=== PATIENT | female | born 1950 | race Caucasian/White ===

== ENCOUNTER 2017-01-02 13:35 | Emergency (ER) | payer MEDICARE, OTHER ==
[~2017-01-02] VITALS: Ht 170.2 cm; Wt 82.2 kg
[~2017-01-02 13:35] MED LIST: ACHD5005 PO; ASP81TEC PO; BENA20TA72 PO; CYCL10TA9 PO; DULO60CA58 PO; DULO60CA6 PO; ERGO400T6; ERGO500028 PO; FLC100T1 PO; HYDR-3720 PO; HYDR1TAB8 PO; INSU100V6 SC; INSU100V6 SQ; K-ROCEP1PB IV; LEVO125T6 PO; LEVO150T6 PO; LEVO500T69 PO; LNZ600T PO; LVT.1T PO; METF-380 PO; MULT-418 PO; NITR-65 PO; OMEP20CA12 PO; ONDAN4ODT PO; VALS1TAB43 PO; VALS1TAB76 PO; VANCADD1 IV; novalog
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
--- NOTE | 2017-01-02 15:18 | Diagnostic Imaging Report ---
EXAM: PA and lateral views of the chest. INDICATION: Bronchitis. Shortness of breath. FINDINGS: The lungs appear clear. The heart size is normal. No effusion or pneumothorax. The mediastinum and essence appear unremarkable. Gastric band is seen in the upper abdomen. IMPRESSION: No acute process. Dictated by: Dictated on workstation # [id number]
[2017-01-02 15:31] LABS: BASOPHILS % (AUTO) 0 % (0-10); EOSINOPHILS # (AUTO) 0.1 10^3/uL (0.0-0.3); EOSINOPHILS % (AUTO) 2 % (0-10); LYMPHOCYTES # (AUTO) 1.6 X 10^3 (1.0-4.0); LYMPHOCYTES % (AUTO) 36 % (12-44); MEAN CORPUSCULAR HEMOGLOBIN 27 PG (25-34); MEAN CORPUSCULAR HGB CONC 34 G/DL (32-36); MEAN CORPUSCULAR VOLUME 78 FL (80-99); MEAN PLATELET VOLUME 12.2 FL (7.4-10.4); MONOCYTES # (AUTO) 0.3 X 10^3 (0.0-1.0); MONOCYTES % (AUTO) 6 % (0-12); NEUTROPHILS # (AUTO) 2.5 X 10^3 (1.8-7.8); NEUTROPHILS % (AUTO) 56 % (42-75); PLATELET COUNT 172 10^3/uL (130-400); RED BLOOD COUNT 4.62 10^6/uL (4.35-5.85); RED CELL DISTRIBUTION WIDTH 13.6 % (10.0-14.5); WHITE BLOOD COUNT 4.5 10^3/uL (4.3-11.0)
--- NOTE | 2017-01-02 15:32 | ED Cough/URI ---
General Chief Complaint: Cough/Cold/Flu Symptoms Stated Complaint: COUGH/CHEST CONGESTION HEAVINESS Nursing Triage Note: PT REPORTS COUGH/CONGESTION SINCE FRIDAY. PT REPORTS WAS SEEN BY DR KABA PA AND DX WITH BRONCHITIS AND GIVEN AN INHALER. PT REPORTS SHE WENT BACK TO WORK TODAY AND HAD AN EPISODE OF DYPNEA/BACK PAIN AND SOA AND DIAPHORESIS. PT REPORTS FEELING BETTER UPON ARRIVAL. History of Present Illness Time seen by provider: 14:50 Initial Comments Evaluation for dyspnea, SOA and back pain. She was diagnosed with bronchitis 2 days ago. Timing/Duration: this morning Severity/Quality: mild, productive cough Prior Episodes/Possible Cause: no prior episodes Modifying Factors: Improves With Lying Down, Improves With Rest Associated Symptoms: denies symptoms Allergies and Home Medications Allergies Coded Allergies: ceftriaxone (Verified Allergy, Intermediate, HIVES, 01/02/17) vancomycin (Verified Allergy, Intermediate, HIVES, 01/02/17) sulfamethoxazole (Verified Allergy, Mild, 01/02/17) trimethoprim (Verified Allergy, Mild, 01/02/17) Home Medications 5 UNITS (Reported) Aspirin 81 Mg Tabec 81 MG PO DAILY (Reported) Duloxetine HCl 60 Mg Capsule.dr 60 MG PO DAILY (Reported) Ergocalciferol 50,000 Unit Capsule 50,000 UNIT PO WEEKLY ON FRIDAY (Reported) Hydrocodone/Ibuprofen 1 Each Tablet #20 1 EACH PO Q4H Prescribed by: CLIF MINA on 02/16/16 0434 Insulin Glargine,Hum.rec.anlog 100 Unit/1 Ml Vial 45 UNITS SC HS (Reported) Levothyroxine Sodium 125 Mcg Tablet 125 MCG PO DAILY (Reported) Linezolid 600 Mg Tablet #20 1 TAB PO BID Prescribed by: JOSE ALEJANDRO KABA on 06/09/14 0839 Omeprazole 20 Mg Capsule. 20 MG PO DAILY (Reported) Valsartan/Hydrochlorothiazide 1 Each Tablet 1 TAB PO DAILY (Reported) Constitutional: no symptoms reported see HPI EENTM: no symptoms reported see HPI Respiratory: see HPI cough other (SOA) Cardiovascular: no symptoms reported see HPI Gastrointestinal: no symptoms reported see HPI Genitourinary: no symptoms reported see HPI Musculoskeletal: no symptoms reported see HPI Skin: no symptoms reported see HPI Psychiatric/Neurological: No Symptoms Reported See HPI Hematologic/Lymphatic: No Symptoms Reported See HPI Immunological/Allergic: no symptoms reported see HPI All Other Systems Reviewed Negative Unless Noted: Yes Past Dbrnqxg-Rhvodq-Xgwsoc Hx Patient Social History Alcohol Use: Denies Use Recreational Drug Use: No Smoking Status: Former Smoker Former Smoker/When Quit: Dec 08, 1985 2nd Hand Smoke Exposure: No Recent Foreign Travel: No Contact w/Someone Who Travel: No Recent Infectious Disease Expo: No Recent Hopitalizations: No Immunizations Up To Date Tetanus Booster (TDap): Unknown Date of Pneumonia Vaccine: Jun 28, 2013 Date of Influenza Vaccine: Jul 29, 2013 Seasonal Allergies Seasonal Allergies: No Surgeries HX Surgeries: Yes (L4-L5, L ANKLE, LAP BAND) Surgeries: Abdominal, Hysterectomy, Orthopedic, Tonsillectomy Respiratory Hx Respiratory Disorders: No Cardiovascular Hx Cardiac Disorders: Yes Cardiac Disorders: High Cholesterol, Hypertension Neurological Hx Neurological Disorders: No Reproductive System Hx Reproductive Disorders: No Sexually Transmitted Disease: No HIV/AIDS: No Female Reproductive Disorders: Denies Genitourinary Hx Genitourinary Disorders: No Gastrointestinal Hx Gastrointestinal Disorders: Yes (LAP BAND) Gastrointestinal Disorders: Gastroesophageal Reflux Musculoskeletal Hx Musculoskeletal Disorders: Yes (left leg Fx, left ankle fx, BACK SURGERY) Musculoskeletal Disorders: Fractures Endocrine Hx Endocrine Disorders: Yes Endocrine Disorders: Diabetes, Insulin dep, Hypothyroidsim HEENT HX ENT Disorders: Yes (Right eye retinopathy) Loss of Vision: Denies Hearing Impairment: Denies Cancer Hx Cancer: No Psychosocial Hx Psychiatric Problems: Yes (MILD) Behavioral Health Disorders: Depression Integumentary HX Skin/Integumentary Disorder: No Blood Transfusions Hx Blood Disorders: No Adverse Reaction to a Blood Tr: No Reviewed Nursing Assessment Reviewed/Agree w Nursing PMH: Yes Family Medical History Family Medial History: Congestive heart failure 03 MOTHER Family history: Arthritis 03 MOTHER Family history: Diabetes mellitus 03 MOTHER Family history: Hypertension 03 FATHER 03 MOTHER Stroke 03 FATHER ( 57YRS) 03 MOTHER (86YEARS) Physical Exam Vital Signs Vital Sign - Last 12Hours 01/02/17 13:49 Temp 96.4 Pulse 76 Resp 18 B/P 161/86 Pulse Ox 99 O2 Delivery Room Air Capillary Refill : Less Than 3 Seconds General Appearance: WD/WN no apparent distress Eyes: Bilateral Eye EOMI, Bilateral Eye Normal Inspection, Bilateral Eye PERRL HEENT: PERRL/EOMI normal ENT inspection TMs normal pharynx normal Neck: non-tender full range of motion supple normal inspection Respiratory: chest non-tender lungs clear normal breath sounds Cardiovascular: normal peripheral pulses regular rate, rhythm no murmur Gastrointestinal: normal bowel sounds non tender soft Extremities: normal range of motion non-tender normal inspection no calf tenderness normal capillary refill Neurologic/Psychiatric: no motor/sensory deficits alert normal mood/affect oriented x 3 Skin: normal color warm/dry Lymphatic: no adenopathy Focused Exam Lactic Acid Level Laboratory Tests Test 01/02/17 15:25 Alanine Aminotransferase (ALT/SGPT) 10U/L (0-55) Albumin 3.7G/DL (3.2-4.5) Alkaline Phosphatase 55U/L (40-136) Anion Gap 11MMOL/L (5-14) Aspartate Amino Transf (AST/SGOT) 19U/L (5-34) BUN/Creatinine Ratio 16 Blood Urea Nitrogen 14MG/DL (7-18) Calcium Level 8.9MG/DL (8.5-10.1) Carbon Dioxide Level 27MMOL/L (21-32) Chloride Level 102MMOL/L (98-107) Creatinine 0.87MG/DL (0.60-1.30) Estimat Glomerular Filtration Rate > 60 Glucose Level 218MG/DL (70-105) H Potassium Level 3.4MMOL/L (3.6-5.0) L Sodium Level 140MMOL/L (135-145) Total Bilirubin 0.4MG/DL (0.1-1.0) Total Protein 6.6G/DL (6.4-8.2) Troponin I < 0.30NG/ML (<0.30) Progress/Results/Core Measures Results/Orders Lab Results Laboratory Tests Test 01/02/17 15:25 Range/Units Alanine Aminotransferase (ALT/SGPT) 10 0-55 U/L Albumin 3.7 3.2-4.5 G/DL Alkaline Phosphatase 55 40-136 U/L Anion Gap 11 5-14 MMOL/L Aspartate Amino Transf (AST/SGOT) 19 5-34 U/L BUN/Creatinine Ratio 16 Basophils # (Auto) 0.0 0.0-0.1 10^3/uL Basophils (%) (Auto) 0 0-10 % Blood Urea Nitrogen 14 7-18 MG/DL Calcium Level 8.9 8.5-10.1 MG/DL Carbon Dioxide Level 27 21-32 MMOL/L Chloride Level 102 98-107 MMOL/L Creatinine 0.87 0.60-1.30 MG/DL Eosinophils # (Auto) 0.1 0.0-0.3 10^3/uL Eosinophils (%) (Auto) 2 0-10 % Estimat Glomerular Filtration Rate > 60 Glucose Level 218 H 70-105 MG/DL Hematocrit 36 35-52 % Hemoglobin 12.4 11.5-16.0 G/DL Lymphocytes # (Auto) 1.6 1.0-4.0 X 10^3 Lymphocytes (%) (Auto) 36 12-44 % Mean Corpuscular Hemoglobin 27 25-34 PG Mean Corpuscular Hemoglobin Concent 34 32-36 G/DL Mean Corpuscular Volume 78 L 80-99 FL Mean Platelet Volume 12.2 H 7.4-10.4 FL Monocytes # (Auto) 0.3 0.0-1.0 X 10^3 Monocytes (%) (Auto) 6 0-12 % Neutrophils # (Auto) 2.5 1.8-7.8 X 10^3 Neutrophils (%) (Auto) 56 42-75 % Platelet Count 172 130-400 10^3/uL Potassium Level 3.4 L 3.6-5.0 MMOL/L Red Blood Count 4.62 4.35-5.85 10^6/uL Red Cell Distribution Width 13.6 10.0-14.5 % Sodium Level 140 135-145 MMOL/L Total Bilirubin 0.4 0.1-1.0 MG/DL Total Protein 6.6 6.4-8.2 G/DL Troponin I < 0.30 <0.30 NG/ML White Blood Count 4.5 4.3-11.0 10^3/uL My Orders Orders-QUANG MENDOZA Cbc With Automated Diff (01/02/17 15:02) Comprehensive Metabolic Panel (01/02/17 15:02) Chest Pa/Lat (2 View) (01/02/17 15:02) Troponin I (01/02/17 15:07) Ekg Tracing (01/02/17 15:07) Monitor-Rhythm Ecg Trace Only (01/02/17 15:07) Vital Signs/I&O Vital Sign - Last 12Hours 01/02/17 01/02/17 01/02/17 13:49 13:49 16:31 Temp 96.4 96.4 Pulse 76 63 Resp 18 14 B/P 161/86 Pulse Ox 99 96 O2 Delivery Room Air Blood Pressure Mean: 111 Progress Note : Time: 14:50 Progress Note Initial evaluation completed, due to the fact the patient is having chest tightness that atypical for chest pain I would still like to proceed with a chest workup. The patient and her agreed with this. 1535 CBC within normal limits; troponin less than 0.3, glucose 218, sodium 140, potassium 3.4, creatinine 0.87, and EKG within normal limits discussed with patient. In light of this I feel much more comfortable that it is respiratory in nature and not cardiac. ECG Initial ECG Impression Date: Jan 02, 2017 Initial ECG Impression Time: 15:18 Initial ECG Rate: 62 Initial ECG Rhythm: Normal Sinus Initial ECG Intervals: Normal Initial ECG Intervals IN 148, QRS D 86, QT 428, QTc 435 [place] P 58, QRS 21, T3 Initial ECG Impression: Normal Comment Discussed with Dr. Abraham agreed with interpretation Diagnostic Imaging Diagonstic Imaging: Xray Plain Films/CT/US/NM/MRI: chest Comments NAME: [facility] REC#: [id number] PT STATUS: REG ER : 1950 PHYSICIAN: QUANG MENDOZA ADMIT DATE: 01/02/17/ER Signed Date of Exam: 01/02/17 CHEST PA/LAT (2 VIEW) EXAM: PA and lateral views of the chest. INDICATION: Bronchitis. Shortness of breath. FINDINGS: The lungs appear clear. The heart size is normal. No effusion or pneumothorax. The mediastinum and essence appear unremarkable. Gastric band is seen in the upper abdomen. IMPRESSION: No acute process. Dictated by: Dictated on workstation # [id number] Dict: 01/02/17 1514 Trans: 01/02/17 1523 [facility] [id number] Interpreted by: NAY SPARKS MD Electronically signed by:NAY SPARKS MD 01/02/17 1526 Departure Impression Impression: Primary Impression: Bronchitis Disposition: 01 HOME, SELF-CARE Condition: Improved Departure-Patient Inst. Referrals: JOSE ALEJANDRO KABA DO (PCP/Family) Primary Care Physician Patient Instructions: Acute Bronchitis, Adult (DC), Cough, Adult (DC) Add. Discharge Instructions: All discharge instructions reviewed with patient and/or family. Voiced understanding. Increase oral intake, check blood sugars twice a day, continue treatment as ordered by Dr. Kaba's office. Return to emergency room if difficulty breathing, chest pain, or change in symptoms. Copy Copies To 1: JOSE ALEJANDRO KABA AMY ARNP Jan 02, 2017 15:32
[2017-01-02 15:48] LABS: ALANINE AMINOTRANSFERASE 10 U/L (0-55); ALBUMIN 3.7 G/DL (3.2-4.5); ANION GAP 11 MMOL/L (5-14); ASPARTATE AMINO TRANSFERASE 19 U/L (5-34); BILIRUBIN,TOTAL 0.4 MG/DL (0.1-1.0); BLOOD UREA NITROGEN 14 MG/DL (7-18); BUN/CREATININE RATIO 16; CALCIUM 8.9 MG/DL (8.5-10.1); CARBON DIOXIDE 27 MMOL/L (21-32); CHLORIDE 102 MMOL/L (98-107); CREATININE SERUM 0.87 MG/DL (0.60-1.30); GFR ESTIMATED > 60; GLUCOSE 218 MG/DL (70-105); POTASSIUM 3.4 MMOL/L (3.6-5.0); SODIUM 140 MMOL/L (135-145); TOTAL PROTEIN 6.6 G/DL (6.4-8.2)
[2017-01-02 15:54] LABS: TROPONIN I < 0.30 NG/ML (<0.30)
[2017-01-02 16:31] VITALS: BP 134/75
== END 2017-01-02 16:31 | disposition home or self-care (01) ==
LOC: EDUNIT# 13:35 → ER 13:38
DX: J40 Bronchitis, not specified as acute or chronic (principal); R07.89 Other chest pain; R61 Generalized hyperhidrosis; E11.9 Type 2 diabetes mellitus without complications; Z79.82 Long term (current) use of aspirin; Z79.4 Long term (current) use of insulin; Z79.899 Other long term (current) drug therapy
CPT/HCPCS: 36415; 71020; 80053; 84484; 85025; 93005; 93041

== ENCOUNTER 2017-02-08 15:05 | Inpatient (IN) | payer MEDICARE, OTHER ==
[~2017-02-08] VITALS: Ht 170.2 cm; Wt 86.3 kg
[2017-02-08] VITALS (8 sets, daily range): BP systolic 90–126; BP diastolic 51–78
[2017-02-08] MEDS ORDERED: HEParin 1000 UNIT/ML (10ML VIAL) FOR BOLUS ONE ×2 (15:10→15:17)
[2017-02-08] MEDS ORDERED: CLOPIDOGREL 300 MG (PLAVIX) TABLET PO ONE ×2 (15:11→15:15)
[2017-02-08] MEDS ORDERED: morphine INJ 10 MG/ML 1ML (SYR OR VIAL) ONE (15:12)
[2017-02-08] MEDS ORDERED: ONDANSETRON 4 MG/2 ML (SDV) Z0FRAN ONE (15:15)
[2017-02-08] MEDS ORDERED: LIDOCAINE 1% INJ 20 ML (XYLOCAINE) VIAL ONE (15:16)
[2017-02-08] MEDS ORDERED: NITROGLYCERIN DRIP 25 MG/D5W 250 ML IV ONE (15:17)
[2017-02-08] MEDS ORDERED: fentaNYL INJECTION 100 MCG/2 ML AMP ONE (15:17)
[2017-02-08] MEDS ORDERED: HEParin (CATH LAB) 2,000 ML IV ONE (15:17)
[2017-02-08] MEDS ORDERED: MIDAZOLAM 5 MG/5 ML (VERSED) VIAL ONE (15:17)
[2017-02-08] MEDS ORDERED: NS IV 1000 ML 1,000 ML ONE (15:17)
[2017-02-08] MEDS ORDERED: EPTIFIBATIDE BOLUS 20 ML IV ONE (15:23)
[2017-02-08] MEDS ORDERED: HEParin DRIP 25000 UNIT/500ML 500 ML IV ONE (15:23)
--- NOTE | 2017-02-08 15:23 | ED Chest Pain ---
General Chief Complaint: Chest Pain Stated Complaint: CHEST PAIN, N/V Source: patient, EMS Exam Limitations: no limitations History of Present Illness Time seen by provider: 15:05 Initial Comments Here with report of chest pain that started at about 215 central with radiation to the back. This is associated with nausea, vomiting, weakness, shortness of breath and diaphoresis. No previous heart catheter noted. She called her friend right away who is then called EMS and EMS brought her in. They were reporting question of elevation in V2 through V4. EMS gave Zofran 4 mg IM, nitroglycerin 1 inch paste to the chest wall and aspirin 324 mg by mouth. Multiple attempts at IV were unsuccessful by EMS. Timing/Duration: 1 hour, constant Severity/Quality: moderate, severe, pressure Location: central Radiation: back Activities at Onset: none Prior CP/Workup: non-cardiac ASA po DIRECTOR HOME HEALTH: Yes NTG SL DIRECTOR HOME HEALTH: Yes Associated Symptoms: No back pain, diaphoresis, nausea/vomiting Allergies and Home Medications Allergies Coded Allergies: ceftriaxone (Verified Allergy, Intermediate, HIVES, 01/02/17) vancomycin (Verified Allergy, Intermediate, HIVES, 01/02/17) sulfamethoxazole (Verified Allergy, Mild, 01/02/17) trimethoprim (Verified Allergy, Mild, 01/02/17) Home Medications Aspirin 81 Mg Tabec, 81 MG PO DAILY, (Reported) Duloxetine HCl 60 Mg Capsule.dr, 60 MG PO DAILY, (Reported) Ergocalciferol 50,000 Unit Capsule, 50,000 UNIT PO WEEKLY ON FRIDAY, (Reported) Hydrocodone/Ibuprofen 1 Each Tablet, 1 EACH PO Q4H, #20 Prescribed by: CLIF MINA on 02/16/16 0434 Insulin Glargine,Hum.rec.anlog 100 Unit/1 Ml Vial, 45 UNITS SC HS, (Reported) Levothyroxine Sodium 125 Mcg Tablet, 125 MCG PO DAILY, (Reported) Linezolid 600 Mg Tablet, 1 TAB PO BID, #20 Prescribed by: JOSE ALEJANDRO MARIE on 06/09/14 0839 Omeprazole 20 Mg Capsule.dr, 20 MG PO DAILY, (Reported) Valsartan/Hydrochlorothiazide 1 Each Tablet, 1 TAB PO DAILY, (Reported) [novalog] , 5 UNITS, (Reported) Review of Systems Constitutional: see HPI, No chills, diaphoresis, No fever EENTM: No Symptoms Reported Respiratory: See HPI, Shortness of Air Cardiovascular: See HPI, Denies Edema, Lightheadedness Gastrointestinal: See HPI, Denies Diarrhea, Nausea, Vomiting Genitourinary: No Symptoms Reported Musculoskeletal: no symptoms reported Skin: change in color Psychiatric/Neurological: No Symptoms Reported Endocrine: No Symptoms Reported All Other Systems Reviewed Negative Unless Noted: Yes Past Jzeejay-Folmlv-Tmpzgz Hx Patient Social History Alcohol Use: Denies Use Recreational Drug Use: No Smoking Status: Never a Smoker Former Smoker/When Quit: Dec 08, 1985 2nd Hand Smoke Exposure: No Recent Hopitalizations: No Immunizations Up To Date Tetanus Booster (TDap): Unknown Date of Pneumonia Vaccine: Jun 28, 2013 Date of Influenza Vaccine: Jul 29, 2013 Seasonal Allergies Seasonal Allergies: No Surgeries HX Surgeries: Yes (L4-L5, L ANKLE, LAP BAND) Surgeries: Abdominal, Hysterectomy, Orthopedic, Tonsillectomy Respiratory Hx Respiratory Disorders: No Cardiovascular Hx Cardiac Disorders: Yes Cardiac Disorders: High Cholesterol, Hypertension Neurological Hx Neurological Disorders: No Reproductive System Hx Reproductive Disorders: No Sexually Transmitted Disease: No HIV/AIDS: No Female Reproductive Disorders: Denies Genitourinary Hx Genitourinary Disorders: No Gastrointestinal Hx Gastrointestinal Disorders: Yes (LAP BAND) Gastrointestinal Disorders: Gastroesophageal Reflux Musculoskeletal Hx Musculoskeletal Disorders: Yes (left leg Fx, left ankle fx, BACK SURGERY) Musculoskeletal Disorders: Fractures Endocrine Hx Endocrine Disorders: Yes Endocrine Disorders: Diabetes, Insulin dep, Hypothyroidsim HEENT HX ENT Disorders: Yes (Right eye retinopathy) Loss of Vision: Denies Hearing Impairment: Denies Cancer Hx Cancer: No Psychosocial Hx Psychiatric Problems: Yes (MILD) Behavioral Health Disorders: Depression Integumentary HX Skin/Integumentary Disorder: No Blood Transfusions Hx Blood Disorders: No Adverse Reaction to a Blood Tr: No Reviewed Nursing Assessment Reviewed/Agree w Nursing PMH: Yes Family Medical History Family Medial History: Congestive heart failure 03 MOTHER Family history: Arthritis 03 MOTHER Family history: Diabetes mellitus 03 MOTHER Family history: Hypertension 03 FATHER 03 MOTHER Stroke 03 FATHER ( 57YRS) 03 MOTHER (86YEARS) Physical Exam Vital Signs Capillary Refill : General Appearance: Moderate Distress HEENT: PERRL/EOMI, Pharynx Normal Neck: Non Tender, Supple Respiratory: Lungs Clear, Normal Breath Sounds Cardiovascular: Regular Rate, Rhythm, No Murmur Gastrointestinal: Non Tender, Soft Extremity: Normal Range of Motion, Non Tender, No Calf Tenderness, No Pedal Edema Neurologic/Psychiatric: Alert, Oriented x3 Skin: Cool, Diaphoresis, Pallor Progress/Results/Core Measures Results/Orders My Orders Orders - DAKOTAH BARRETO MD Heparin (Bolus Per Protocol) (Heparin (B (02/08/17 15:10) Clopidogrel Tablet (Plavix Tablet) (02/08/17 15:11) Morphine Injection (Morphine Injection (02/08/17 15:12) Ondansetron Injection (Zofran Injectio (02/08/17 15:15) Lidocaine 1% Injection (Xylocaine 1% Inj (02/08/17 15:16) Midazolam Injection (Versed Injection) (02/08/17 15:17) Fentanyl Injection (Sublimaze Injection (02/08/17 15:17) Heparin (Bolus Per Protocol) (Heparin (B (02/08/17 15:17) Ns Iv 1000 Ml (Sodium Chloride 0.9%) (02/08/17 15:17) Nitroglycerin Drip 25 Mg/D5w (Nitroglyce (02/08/17 15:17) Heparin ([facility]) (Heparin ([facility])) (02/08/17 15:17) Cbc With Automated Diff (02/08/17:23) Magnesium (02/08/17 15:23) Chest 1 View, Ap/Pa Only (02/08/17 15:23) Ekg Tracing (02/08/17 15:23) Cardiac Profile 1 (02/08/17 15:23) Comprehensive Metabolic Panel (02/08/17:23) Myoglobin Serum (02/08/17 15:23) Protime With Inr (02/08/17:23) Partial Thromboplastin Time (02/08/17 15:23) O2 (02/08/17 15:23) Monitor-Rhythm Ecg Trace Only (02/08/17:23) Lipid Panel (02/09/17 06:00) Saline Lock/Iv-Start (02/08/17 15:23) Heparin Injection (Heparin Injection) (02/08/17 15:30) Heparin Drip Acs (02/08/17 15:23) Progress Note : Progress Note Seen and evaluated on arrival by EMS. Rapid evaluation including EKG which does note acute CO in the anterior region. Catheter team notified paged at 1508 and I did discuss the case with him at 1510. There is a patient on the catheter table currently but will be off pretty quick and this patient will go to the [facility]. Plavix 6 or milligrams by mouth, heparin 5000 unit bolus and drip of 1000 units an hour initiated. IV was established. Labs and chest x- ray ordered. Zofran 4 mg IV given for persistent nausea. Patient has nitro paste on. She has continued chest pain. Morphine IV given for pain. 1525: Catheter team updated and will be here shortly. Case discussed with Dr. Arthur. 1535: Patient to [facility]. Chest pain is improving but not gone with morphine. ECG Initial ECG Impression Date: Feb 08, 2017 Initial ECG Impression Time: 15:08 Initial ECG Rate: 65 Initial ECG Rhythm: Normal Sinus Initial ECG Impression: Acute CO Comment Significant elevation in leads V1 through V3 [address] depression in leads 2, 3 and aVF indicating extensive anterior infarct acute ST elevation CO. Diagnostic Imaging Diagonstic Imaging: Xray Plain Films/CT/US/NM/MRI: chest Comments VIA [facility]. [place], [place] NAME: [facility] REC#: [id number] PT STATUS: REG ER : 1950 PHYSICIAN: DAKOTAH BARRETO MD ADMIT DATE: 02/08/17/ER Draft Date of Exam:02/08/17 CHEST 1 VIEW, AP/PA ONLY INDICATION: Chest pain. Portable chest 3:26 PM FINDINGS: Heart size and pulmonary vascularity are normal. Lungs are clear. There are no effusions or pneumothoraces. IMPRESSION: Negative chest. Dictated on workstation # [id number] Dict: 02/08/17 1530 Trans: 02/08/17 1533 [id number] Interpreted by: DAKOTAH PETER Electronically signed by: Departure Communication Time/Spoke to Admitting Phy: 15:10 Impression Impression: Primary Impression: Acute anterior wall CO Disposition: ADMITTED INPATIENT Condition: Critical Decision to Admit Reason: Admit from ER (General) Decision to Admit/Date: Feb 08, 2017 Time/Decision to Admit Time: 15:08 Departure-Patient Inst. Referrals: JOSE ALEJANDRO MARIE DO (PCP/Family) Primary Care Physician DAKOTAH BARRETO MD Feb 08, 2017 15:23
--- NOTE | 2017-02-08 15:33 | Diagnostic Imaging Report ---
INDICATION: Chest pain. Portable chest 3:26 PM FINDINGS: Heart size and pulmonary vascularity are normal. Lungs are clear. There are no effusions or pneumothoraces. IMPRESSION: Negative chest. Dictated by: Dictated on workstation # [id number]
[2017-02-08 15:41] LABS: BASOPHILS # (AUTO) 0.1 10^3/uL (0.0-0.1); BASOPHILS % (AUTO) 1 % (0-10); EOSINOPHILS # (AUTO) 0.2 10^3/uL (0.0-0.3); EOSINOPHILS % (AUTO) 2 % (0-10); LYMPHOCYTES # (AUTO) 3.7 X 10^3 (1.0-4.0); LYMPHOCYTES % (AUTO) 35 % (12-44); MEAN CORPUSCULAR HEMOGLOBIN 26 PG (25-34); MEAN CORPUSCULAR HGB CONC 33 G/DL (32-36); MEAN CORPUSCULAR VOLUME 78 FL (80-99); MEAN PLATELET VOLUME 11.4 FL (7.4-10.4); MONOCYTES # (AUTO) 0.5 X 10^3 (0.0-1.0); MONOCYTES % (AUTO) 5 % (0-12); NEUTROPHILS % (AUTO) 58 % (42-75); PLATELET COUNT 318 10^3/uL (130-400); RED BLOOD COUNT 5.41 10^6/uL (4.35-5.85); WHITE BLOOD COUNT 10.4 10^3/uL (4.3-11.0)
--- NOTE | 2017-02-08 15:46 | Cardiac Procedure Note-CS/ASA ---
Pre-Procedure Note Pre-Op Procedure Note H&P Reviewed The H&P was reviewed, patient examined and no changes noted. Date H&P Reviewed: Feb 08, 2017 Time H&P Reviewed: 15:46 Conscious Sedation Pre-Proced Time Reviewed: 15:46 ASA Class: 4 Airway Mallampati Classification: ([place] appropriate class) I. II. III, IV Lungs Heart ASA score ASA 1: a normal healthy patient ASA 2: a patient with a mild systemic disease (mid diabetes, controlled hypertension, obesity ASA 3: a patient with a severe systemic disease that limits activity (angina , COPD, prior Myocardial infarction) ASA 4: a patient with an incapacitating disease that is a constant threat to life (CHF, renal failure) ASA 5: a moribund patient not expected to survive 24 hrs. (ruptured aneurysm) ASA 6: a declared brain patient whose organs are being harvested. For emergent operations, add the letter E after the classification Grade 3 Sedation Plan: Analgesia, Amnesia, Plan communicated to team members, Discussed options with patient/fam, Discussed risks with patient/fam Note The patient is an appropriate candidate to undergo the planned procedure, sedation, and anesthesia. The patient immediately re-assessed prior to indication. CROW ACKERMAN MD FACP FAC CCDS Feb 08, 2017 15:46
[2017-02-08 15:51] LABS: INR 1.1 (0.8-1.4)
[2017-02-08] MEDS ORDERED: EPTIFIBATIDE DRIP 100 ML IV ONE (15:56)
[2017-02-08 16:02] LABS: ALANINE AMINOTRANSFERASE 9 U/L (0-55); ALBUMIN 4.7 G/DL (3.2-4.5); ANION GAP 18 MMOL/L (5-14); ASPARTATE AMINO TRANSFERASE 19 U/L (5-34); BLOOD UREA NITROGEN 10 MG/DL (7-18); BUN/CREATININE RATIO 10; CALCIUM 10.3 MG/DL (8.5-10.1); CARBON DIOXIDE 21 MMOL/L (21-32); CHLORIDE 104 MMOL/L (98-107); CREATININE SERUM 1.01 MG/DL (0.60-1.30); GFR ESTIMATED 55; GLUCOSE 137 MG/DL (70-105); MAGNESIUM 2.2 MG/DL (1.8-2.4); POTASSIUM 3.6 MMOL/L (3.6-5.0); SODIUM 143 MMOL/L (135-145); TOTAL PROTEIN 8.7 G/DL (6.4-8.2)
[2017-02-08 16:08] LABS: MYOGLOBIN SERUM 174.9 NG/ML (10.0-92.0)
[2017-02-08] MEDS ORDERED: PATIENT MAY USE OWN MEDS, ALL PO SCH (16:30)
[2017-02-08] MEDS ORDERED: ACETAMINOPHEN 325 MG TABLET/CAPLET (TYLENOL) PO PRN (16:30)
[2017-02-08] MEDS ORDERED: NS IV 1000 ML 1,000 ML IV SCH (16:45)
[2017-02-08 16:46] LABS: PARTIAL THROMBOPLASTIN TIME > 200 SEC (24-35)
--- NOTE | 2017-02-08 16:58 | Cardiology History & Physical ---
HPI-Cardiology Cardiology H&P Date of Admission 02/08/17 Primary Care Physician Flor Kaba DO Attending Physician Cori Arthur MD FACP [facility] CCDS Consulting Physician [facility] CC: Chest pain HPI: 66 yo woman who presents with 2 hours of mid sternal cp radiating to shoulders and back and associated with diaphoresis and some shortness of breath , severe in intensity, unresponsive to s/l NTG, not associated with palp or syncope, never experienced before. Denies ankle swelling or fever or chills Review of Systems-Cardiology Review of Systems Constitutional: malaise Eyes: No vision change Ears/Nose/Throat: No ear discharge, No nasal drainage, No recent hearing loss Respiratory: As described under HPI Cardiovascular: As described under HPI Gastrointestinal: No constipation, No diarrhea, nausea, No vomiting Genitourinary: No dysuria, No hematuria, No urine frequency changes Musculoskeletal: back pain Skin: No rash, No ulcerations Psychiatric/Neurological: No focal weakness, No seizure, No syncope Hematologic: bleeding abnormalities All Other Systems Reviewed Negative Unless Noted: Yes [id number] Hx Patient Social History Alcohol Use: Denies Use Recreational Drug Use: No Smoking Status: Never a Smoker Former smoker/When Quit: Dec 08, 1985 2nd Hand Smoke Exposure: No Recent Foreign Travel: No Recent Infectious Disease Expo: No Hospitalization with Isolation: Denies Immunizations Up To Date Tetanus Booster (TDap): Unknown Date of Pneumonia Vaccine: Jun 28, 2013 Date of Influenza Vaccine: Jul 29, 2013 Past Medical History PMH As described under Assessment. Family Medical History Family History: Congestive heart failure 03 MOTHER Family history: Arthritis 03 MOTHER Family history: Diabetes mellitus 03 MOTHER Family history: Hypertension 03 FATHER 03 MOTHER Stroke 03 FATHER ( 57YRS) 03 MOTHER (86YEARS) Allergies and Home Medications Allergies Coded Allergies: ceftriaxone (Verified Allergy, Intermediate, HIVES, 01/02/17) vancomycin (Verified Allergy, Intermediate, HIVES, 01/02/17) sulfamethoxazole (Verified Allergy, Mild, 01/02/17) trimethoprim (Verified Allergy, Mild, 01/02/17) Home Medications Aspirin 81 Mg Tabec, 81 MG PO DAILY, (Reported) Duloxetine HCl 60 Mg Capsule.dr, 60 MG PO DAILY, (Reported) Ergocalciferol 50,000 Unit Capsule, 50,000 UNIT PO WEEKLY ON FRIDAY, (Reported) Insulin Glargine,Hum.rec.anlog 100 Unit/1 Ml Vial, 45 UNITS SC HS, (Reported) Levothyroxine Sodium 125 Mcg Tablet, 125 MCG PO DAILY, (Reported) Omeprazole 20 Mg Capsule.dr, 20 MG PO DAILY, (Reported) Valsartan/Hydrochlorothiazide 1 Each Tablet, 1 TAB PO DAILY, (Reported) [novalog] , 5 UNITS, (Reported) Physical Exam-Cardiology Physical Exam Vital Signs/I&O Vital Sign - Last 12Hours 02/08/17 02/08/17 02/08/17 02/08/17 15:08 15:08 15:10 15:16 Temp 97.4 97.4 Pulse 70 Resp 20 B/P (MAP) 162/93 Pulse Ox 97 97 O2 Delivery Room Air Room Air Room Air 02/08/17 15:35 Temp 97.4 Pulse 74 Resp 22 Pulse Ox 98 Capillary Refill : Less Than 3 Seconds Constitutional: AAO x 3, well-developed, well-nourished HEENT: PERRL, EOMI, No xanthelasmas are seen Neck: carotid pulses are 2 + bilaterally, with good upstrokes Respiratory: No accessory muscle use, lungs clear to auscultation Cardiovascular: regular rate-rhythm, S1 and S2, systolic murmur (soft ISABEL at cardiac base) Gastrointestinal: No tender, soft, No guarding, No rebound, audible bowel sounds Extremities: No pedal edema, No clubbing, No cyanosis Neurologic/Psychiatric: oriented x 3, grossly intact, power is 5/5 both on sides Skin: No rash on exposed areas, No ulcerations on exposed areas Data Review Labs Laboratory Tests 02/08/17 15:31: Glucometer 131H 02/08/17 15:33: White Blood Count 10.4, Red Blood Count 5.41, Hemoglobin 14.1, Hematocrit 42, Mean Corpuscular Volume 78L, Mean Corpuscular Hemoglobin 26, Mean Corpuscular Hemoglobin Concent 33, Red Cell Distribution Width 14.0, Platelet Count 318, Mean Platelet Volume 11.4H, Neutrophils (%) (Auto) 58, Lymphocytes (%) (Auto) 35 , Monocytes (%) (Auto) 5, Eosinophils (%) (Auto) 2, Basophils (%) (Auto) 1, Neutrophils # (Auto) 6.0, Lymphocytes # (Auto) 3.7, Monocytes # (Auto) 0.5, Eosinophils # (Auto) 0.2, Basophils # (Auto) 0.1, Prothrombin Time 14.0, INR Comment 1.1, Activated Partial Thromboplast Time > 200*H, Sodium Level 143, Potassium Level 3.6, Chloride Level 104, Carbon Dioxide Level 21, Anion Gap 18H , Blood Urea Nitrogen 10, Creatinine 1.01, Estimat Glomerular Filtration Rate 55 , BUN/Creatinine Ratio 10, Glucose Level 137H, Calcium Level 10.3H, Magnesium Level 2.2, Total Bilirubin 1.0, Aspartate Amino Transf (AST/SGOT) 19, Alanine Aminotransferase (ALT/SGPT) 9, Alkaline Phosphatase 86, Myoglobin 174.9H, Troponin I < 0.30, Total Protein 8.7H, Albumin 4.7H Laboratory Tests 02/08/17 15:33 A/P-Cardiology Assessment/Admission Diagnosis Ac STEMI, anterolateral Hypertension DM II Hyperlipidemia Obesity with BMI approx 28 Discussion and Recomendations Emergency card cath recommended. Pros and cons discussed. She provided informed consent for cath and possible ad hoc PCI Clinical Quality Measures AMI/AHF: ASA po Prior to arrival: Yes CORI ARTHUR MD FACP FAC [facility]S Feb 08, 2017 16:58
[2017-02-08] MEDS ORDERED: meTOproloL SUCCINATE 50 MG (TOPROL XL) TAB PO SCH (17:00)
[2017-02-08] MEDS: NS IV 1000 ML 1,000 ML IV SCH (17:52)
[2017-02-08] MEDS: ATORVASTATIN 40 MG (LIPITOR) TABLET PO SCH (21:00)
[2017-02-08] MEDS ORDERED: inSUlin (REGULAR) HUMAN 1 UNIT/0.01 ML (CHARGE PER UNIT) SC SCH (21:00)
[2017-02-08] MEDS: inSUlin (REGULAR) HUMAN 1 UNIT/0.01 ML (CHARGE PER UNIT) SC SCH (22:00)
[2017-02-09] VITALS (22 sets, daily range): BP systolic 100–148; BP diastolic 55–87
[2017-02-09] MEDS: inSUlin (REGULAR) HUMAN 1 UNIT/0.01 ML (CHARGE PER UNIT) SC SCH ×4 (03:12→21:14)
[2017-02-09] MEDS ORDERED: inSUlin DETERMIR 1 UNIT/0.01 ML (LEVEMIR) CHARGE PER UNIT SQ ONE (03:21)
[2017-02-09 04:21] LABS: MEAN PLATELET VOLUME 11.8 FL (7.4-10.4); RED BLOOD COUNT 4.61 10^6/uL (4.35-5.85); RED CELL DISTRIBUTION WIDTH 14.4 % (10.0-14.5); WHITE BLOOD COUNT 9.7 10^3/uL (4.3-11.0)
[2017-02-09 04:48] LABS: ALBUMIN 3.8 G/DL (3.2-4.5); BILIRUBIN,TOTAL 0.8 MG/DL (0.1-1.0); CALCIUM 9.4 MG/DL (8.5-10.1); CREATININE SERUM 1.01 MG/DL (0.60-1.30); MAGNESIUM 2.1 MG/DL (1.8-2.4); POTASSIUM 4.3 MMOL/L (3.6-5.0); TOTAL PROTEIN 6.8 G/DL (6.4-8.2)
[2017-02-09 05:10] LABS: THYROID STIMULATING HORMONE 0.74 UIU/ML (0.35-4.94)
[2017-02-09] MEDS: inSUlin DETERMIR 1 UNIT/0.01 ML (LEVEMIR) CHARGE PER UNIT SQ SCH ×2 (06:30→22:12)
[2017-02-09] MEDS: NS IV 1000 ML 1,000 ML IV SCH (08:22)
--- NOTE | 2017-02-09 10:03 | CARDIAC CATHETERIZATION ---
DATE OF SERVICE: 02/08/2017 PROCEDURE: Cardiac catheterization and coronary intervention. PRIMARY CARE PHYSICIAN: Dr. Kaba. The patient is a 66-year-old lady who presented with 2 hours of chest pain and there was ST elevation on the myocardial infarction consistent with acute anterolateral myocardial infarction associated with ST elevation. Emergency cardiac catheterization was recommended. Informed consent was obtained. PROCEDURE: She was brought to the cardiac catheterization laboratory. Right groin was prepped and draped in the usual sterile fashion. Lidocaine 1% local anesthesia. Modified Seldinger technique was used to advance a 6-Cambodian sheath in the right femoral artery. A 6-Cambodian JL4 catheter was used for left coronary angiography. PERCUTANEOUS INTERVENTION TO THE LEFT ANTERIOR DESCENDING ARTERY: Following completion of the diagnostic procedure for the left coronary system, we proceeded with percutaneous intervention to the proximal left anterior descending artery which was completely occluded with no antegrade flow. We used a 6-Cambodian JL4 guide catheter to engage the left coronary artery. We gave a double bolus of Integrilin and Integrilin infusion was continued throughout the procedure. She had received 5000 units of intravenous heparin in the emergency room. We gave an additional 3000 units of intravenous heparin at the time of the interventional procedure. We used a Choice floppy wire to cross the lesion with moderate difficulty and the tip of the wire was placed in the distal left anterior descending artery. We carried out balloon angioplasty with Emerge 2.0 x 12 mm balloon. This restored antegrade flow to the left anterior descending artery. The balloon was removed and we then proceeded with stenting of the proximal left anterior descending artery lesion with Alpine Xience 2.5 x 15 mm stent. This was carefully positioned to cover the entire lesion and the stent was deployed at 18 atmospheres achieving a final stent lumen size of approximately 2.75 mm. She tolerated the procedure well. Following the stenting procedure, there is 0% residual stenosis left anterior descending artery and flow throughout the vessel is normal. Angioplasty equipment was removed. We then carried out diagnostic angiography of the right coronary artery using a 6-Cambodian JR4 catheter. We carried out left heart catheterization using a 6-Cambodian pigtail catheter. Left ventriculography was performed. Pigtail was pulled back and removed. Angiography of the right femoral artery was carried out through the sheath. Mynx was used to achieve hemostasis. She tolerated the procedure well. HEMODYNAMICS: Left ventricular end diastolic pressure following coronary angiography was 21 mmHg. There was no significant pressure gradient on pullback across the aortic valve. The ascending aortic pressure is 102/61 with a mean of 81 mmHg. LEFT VENTRICULAR ANGIOGRAPHY: Was carried out in the right anterior oblique projection. Global left ventricular systolic function is mildly impaired. Left ventricular ejection fraction is 45-50%. There is anterolateral hypokinesis to akinesis, localized. No significant mitral regurgitation is seen. CORONARY ANGIOGRAPHY: Left main coronary artery did not exhibit significant disease. Left anterior descending artery was occluded in its proximal portion. Following percutaneous intervention and deployment of Alpine Xience 2.5 x 15 mm stent. There is a 0% residual stenosis in the proximal right coronary artery and there is normal antegrade flow. The left circumflex artery has mild diffuse plaques. Right coronary artery is dominant and does not exhibit significant obstructive disease. CONCLUSIONS: 1. Coronary artery disease primarily consisting of proximal occlusion of left anterior descending artery to which successful stenting was carried out. Following deployment of Alpine Xience 2.5 x 15 mm stent in the proximal left anterior descending artery, there was 0% residual stenosis and normal antegrade flow. The left circumflex and right coronary arteries exhibit mild plaque. 2. Mild impairment of global left ventricular systolic function with ejection fraction of 45-50%. 3. Localized anterolateral akinesis. 4. No significant mitral regurgitation. 5. Elevated left ventricular end-diastolic pressure. DISCUSSION AND RECOMMENDATIONS: Aspirin and clopidogrel have been added to the regimen. Statins have been added to the regimen. Beta blockers have been added to the regimen. Angiotensin receptor blockers are being continued. She has been hospitalized after today's presentation with acute ST elevation myocardial infarction and subsequent primary angioplasty of the left anterior descending artery. Job ID: [id number] DocumentID: [id number] Dictated Date: 02/08/2017 17:05:38 Biochemistry Technician Date: 02/08/2017 17:49:14 Dictated By: CROW ACKERMAN MD, MA, FACP, FACC, MTDD
[2017-02-09] MEDS: CLOPIDOGREL 75 MG (PLAVIX) TABLET PO SCH (10:12)
[2017-02-09] MEDS: VALSARTAN 80 MG (DIOVAN) TAB PO SCH (10:12)
[2017-02-09] MEDS: meTOproloL SUCCINATE 50 MG (TOPROL XL) TAB PO SCH (10:12)
[2017-02-09] MEDS: ASPIRIN E.C. 81 MG (ECOTRIN) TAB PO SCH (10:12)
--- NOTE | 2017-02-09 12:44 | Progress Note-Cardiology ---
Cardiology SOAP Progress Note Subjective: No cp or palp or syncope of shortness of breath Objective: I&O/Vital Signs Vital Sign - Last 12Hours 02/09/17 02/09/17 02/09/17 02/09/17 01:00 01:00 02:00 03:00 Pulse 69 66 66 60 Resp 10 13 7 B/P (MAP) 113/62 126/74 144/73 Pulse Ox 95 99 O2 Delivery Room Air Room Air Room Air 02/09/17 02/09/17 02/09/17 02/09/17 03:27 04:00 04:00 05:00 Temp 96.0 96.5 Pulse 60 Resp 18 11 B/P (MAP) 125/75 126/76 Pulse Ox 96 97 O2 Delivery Room Air Room Air 02/09/17 02/09/17 02/09/17 02/09/17 06:00 07:00 07:00 08:23 Temp 96.6 96.8 Pulse 58 60 60 Resp 11 10 B/P (MAP) 100/82 120/67 Pulse Ox 98 O2 Delivery Room Air Room Air Room Air 02/09/17 02/09/17 02/09/17 02/09/17 08:24 09:00 10:00 11:00 Pulse 57 63 67 Resp 8 11 17 B/P (MAP) 137/71 130/68 148/74 Pulse Ox 98 99 100 100 O2 Delivery Room Air Room Air Room Air 02/09/17 02/09/17 11:38 11:38 Temp 96.8 Pulse 62 Resp 18 B/P (MAP) 124/67 Pulse Ox 100 98 O2 Delivery Room Air Intake and Output 02/09/17 00:00 Intake Total 444 ml Output Total 300 ml Balance 144 ml Weight (Pounds): 190 Weight (Ounces): 4.0 Weight (Calculated Kilograms): 86.308431 Constitutional: AAO x 3, well-developed, well-nourished Respiratory: No accessory muscle use, lungs clear to auscultation Cardiovascular: regular rate-rhythm, S1 and S2, systolic murmur (soft ISABEL at cardiac base) Gastrointestional: No tender, soft, No guarding, No rebound, audible bowel sounds Extremities: No pedal edema, No clubbing, No cyanosis Neurologic/Psychiatric: oriented x 3, grossly intact, power is 5/5 both on sides Skin: No rash on exposed areas, No ulcerations on exposed areas Results/Procedures: Labs Laboratory Tests 02/08/17 15:31: Glucometer 131H 02/08/17 15:33: White Blood Count 10.4, Red Blood Count 5.41, Hemoglobin 14.1, Hematocrit 42, Mean Corpuscular Volume 78L, Mean Corpuscular Hemoglobin 26, Mean Corpuscular Hemoglobin Concent 33, Red Cell Distribution Width 14.0, Platelet Count 318, Mean Platelet Volume 11.4H, Neutrophils (%) (Auto) 58, Lymphocytes (%) (Auto) 35 , Monocytes (%) (Auto) 5, Eosinophils (%) (Auto) 2, Basophils (%) (Auto) 1, Neutrophils # (Auto) 6.0, Lymphocytes # (Auto) 3.7, Monocytes # (Auto) 0.5, Eosinophils # (Auto) 0.2, Basophils # (Auto) 0.1, Prothrombin Time 14.0, INR Comment 1.1, Activated Partial Thromboplast Time > 200*H, Sodium Level 143, Potassium Level 3.6, Chloride Level 104, Carbon Dioxide Level 21, Anion Gap 18H , Blood Urea Nitrogen 10, Creatinine 1.01, Estimat Glomerular Filtration Rate 55 , BUN/Creatinine Ratio 10, Glucose Level 137H, Calcium Level 10.3H, Magnesium Level 2.2, Total Bilirubin 1.0, Aspartate Amino Transf (AST/SGOT) 19, Alanine Aminotransferase (ALT/SGPT) 9, Alkaline Phosphatase 86, Myoglobin 174.9H, Troponin I < 0.30, Total Protein 8.7H, Albumin 4.7H 02/09/17 03:01: Glucometer 196H 02/09/17 03:45: White Blood Count 9.7, Red Blood Count 4.61, Hemoglobin 12.2, Hematocrit 37, Mean Corpuscular Volume 81, Mean Corpuscular Hemoglobin 27, Mean Corpuscular Hemoglobin Concent 33, Red Cell Distribution Width 14.4, Platelet Count 291, Mean Platelet Volume 11.8H, Sodium Level 139, Potassium Level 4.3, Chloride Level 103, Carbon Dioxide Level 25, Anion Gap 11, Blood Urea Nitrogen 16, Creatinine 1.01, Estimat Glomerular Filtration Rate 55, BUN/Creatinine Ratio 16 , Glucose Level 213H, Calcium Level 9.4, Magnesium Level 2.1, Total Bilirubin 0.8, Aspartate Amino Transf (AST/SGOT) 246H, Alanine Aminotransferase (ALT/SGPT ) 37, Alkaline Phosphatase 63, Total Protein 6.8, Albumin 3.8, Triglycerides Level 46, Cholesterol Level 157, LDL Cholesterol Direct 82, VLDL Cholesterol 9, HDL Cholesterol 53, Thyroid Stimulating Hormone (TSH) 0.74 02/09/17 06:52: Glucometer 149H 02/09/17 11:37: Glucometer 106 Laboratory Tests 02/08/17 15:33 02/09/17 03:45 A/P: Assessment: Ac STEMI, anterolateral, treated with successful primary angioplasty on 02/08/17 (see below) CAD. Cath of 02/08/17 showed total prox occlusion of the LAD that was successfully treated with stenting with Alpine Xience 2.5 x 15 mm stent; other cors had mild plaque; LVEDP was moderately elevated; LVEF was 45-50% Echo of 02/09/17 showed mid-septal hypokinesis, LVEF 55%, no significant valvular heart disease Hypertension DM II Hyperlipidemia Obesity with BMI approx 28 Plan: I discussed with her in detail the cardiac procedures and interventions undertaken during this hospitalization Risk factor modification discussed Monitor labs Increase ambulation Clinical Quality Measures AMI/AHF: ASA po Prior to arrival: Yes CROW ACKERMAN MD FACP FAC [facility]S Feb 09, 2017 12:44
[2017-02-09] MEDS: ATORVASTATIN 40 MG (LIPITOR) TABLET PO SCH (21:04)
[2017-02-10] VITALS (9 sets, daily range): BP systolic 115–146; BP diastolic 49–98
[2017-02-10 04:26] LABS: BASOPHILS % (AUTO) 0 % (0-10); EOSINOPHILS # (AUTO) 0.2 10^3/uL (0.0-0.3); EOSINOPHILS % (AUTO) 2 % (0-10); LYMPHOCYTES # (AUTO) 3.7 X 10^3 (1.0-4.0); LYMPHOCYTES % (AUTO) 40 % (12-44); MEAN CORPUSCULAR HEMOGLOBIN 26 PG (25-34); MEAN CORPUSCULAR HGB CONC 33 G/DL (32-36); MEAN CORPUSCULAR VOLUME 80 FL (80-99); MEAN PLATELET VOLUME 11.5 FL (7.4-10.4); MONOCYTES # (AUTO) 0.7 X 10^3 (0.0-1.0); MONOCYTES % (AUTO) 7 % (0-12); NEUTROPHILS # (AUTO) 4.8 X 10^3 (1.8-7.8); NEUTROPHILS % (AUTO) 51 % (42-75); PLATELET COUNT 256 10^3/uL (130-400); RED BLOOD COUNT 4.38 10^6/uL (4.35-5.85); RED CELL DISTRIBUTION WIDTH 14.1 % (10.0-14.5); WHITE BLOOD COUNT 9.5 10^3/uL (4.3-11.0)
[2017-02-10 04:47] LABS: CREATININE SERUM 0.95 MG/DL (0.60-1.30); POTASSIUM 3.5 MMOL/L (3.6-5.0)
[2017-02-10] MEDS: inSUlin (REGULAR) HUMAN 1 UNIT/0.01 ML (CHARGE PER UNIT) SC SCH ×2 (05:42→11:00)
[2017-02-10] MEDS: ASPIRIN E.C. 81 MG (ECOTRIN) TAB PO SCH (08:48)
[2017-02-10] MEDS: VALSARTAN 80 MG (DIOVAN) TAB PO SCH (08:48)
[2017-02-10] MEDS: CLOPIDOGREL 75 MG (PLAVIX) TABLET PO SCH (08:48)
[2017-02-10] MEDS: meTOproloL SUCCINATE 50 MG (TOPROL XL) TAB PO SCH (08:48)
--- NOTE | 2017-02-10 09:21 | Progress Note-Cardiology ---
Cardiology SOAP Progress Note Subjective: Denies cp or palp or syncope or ankle swelling. Wishes to go home Objective: I&O/Vital Signs Vital Sign - Last 12Hours 02/09/17 02/09/17 02/10/17 02/10/17 22:00 23:00 00:00 00:00 Pulse 67 72 B/P (MAP) 124/87 121/71 115/56 Pulse Ox 97 98 98 O2 Delivery Room Air Room Air Room Air 02/10/17 02/10/17 02/10/17 02/10/17 00:00 01:00 01:00 02:00 Pulse 65 72 66 B/P (MAP) 122/76 130/65 Pulse Ox 97 98 O2 Delivery Room Air Room Air Room Air 02/10/17 02/10/17 02/10/17 02/10/17 03:00 04:00 04:00 05:00 Pulse 67 65 65 B/P (MAP) 120/49 120/60 132/80 Pulse Ox 98 98 99 95 O2 Delivery Room Air Room Air Room Air 02/10/17 02/10/17 02/10/17 06:00 07:00 08:00 Temp 99.2 Pulse 76 79 B/P (MAP) 146/98 Pulse Ox 91 O2 Delivery Room Air Room Air Intake and Output 02/10/17 00:00 Intake Total 1450 ml Balance 1450 ml Weight (Pounds): 190 Weight (Ounces): 4.0 Weight (Calculated Kilograms): 86.064297 Groin site without hematoma: Yes Bruising: mild bruising Constitutional: AAO x 3, well-developed, well-nourished Respiratory: No accessory muscle use, lungs clear to auscultation Cardiovascular: regular rate-rhythm, S1 and S2, systolic murmur (soft ISABEL at cardiac base) Gastrointestional: No tender, soft, No guarding, No rebound, audible bowel sounds Extremities: No pedal edema, No clubbing, No cyanosis Neurologic/Psychiatric: oriented x 3, grossly intact, power is 5/5 both on sides Skin: No rash on exposed areas, No ulcerations on exposed areas Results/Procedures: Labs Laboratory Tests 02/09/17 11:37: Glucometer 106 02/09/17 16:17: Glucometer 164H 02/10/17 03:56: White Blood Count 9.5, Red Blood Count 4.38, Hemoglobin 11.5, Hematocrit 35, Mean Corpuscular Volume 80, Mean Corpuscular Hemoglobin 26, Mean Corpuscular Hemoglobin Concent 33, Red Cell Distribution Width 14.1, Platelet Count 256, Mean Platelet Volume 11.5H, Neutrophils (%) (Auto) 51, Lymphocytes (%) (Auto) 40 , Monocytes (%) (Auto) 7, Eosinophils (%) (Auto) 2, Basophils (%) (Auto) 0, Neutrophils # (Auto) 4.8, Lymphocytes # (Auto) 3.7, Monocytes # (Auto) 0.7, Eosinophils # (Auto) 0.2, Basophils # (Auto) 0.0, Sodium Level 143, Potassium Level 3.5L, Chloride Level 107, Carbon Dioxide Level 27, Anion Gap 9, Blood Urea Nitrogen 13, Creatinine 0.95, Estimat Glomerular Filtration Rate 59, BUN/ Creatinine Ratio 14, Glucose Level 58*L, Calcium Level 9.0, Magnesium Level 2.0 02/10/17 05:31: Glucometer 79 Laboratory Tests 02/08/17 15:33 02/09/17 03:45 02/10/17 03:56 A/P: Assessment: Ac STEMI, anterolateral, treated with successful primary angioplasty on 02/08/17 (see below) CAD. Cath of 02/08/17 showed total prox occlusion of the LAD that was successfully treated with stenting with Alpine Xience 2.5 x 15 mm stent; other cors had mild plaque; LVEDP was moderately elevated; LVEF was 45-50% Echo of 02/09/17 showed mid-septal hypokinesis, LVEF 55%, no significant valvular heart disease PVCs, isolated and coupled, asymptomatic. No VT Hypertension DM II Hyperlipidemia Obesity with BMI approx 28 Plan: I discussed again with her in detail the cardiac procedures and interventions undertaken during this hospitalization Risk factor modification again discussed Outpatient f/u is advised Clinical Quality Measures AMI/AHF: ASA po Prior to arrival: Yes CROW ACKERMAN MD FACP FAC CCDS Feb 10, 2017 09:21
[2017-02-10] MEDS ORDERED: CLOP75TA28 PO (09:24)
[2017-02-10] MEDS ORDERED: ASPI-999 PO (09:24)
[2017-02-10] MEDS ORDERED: METO-272 PO (09:24)
[2017-02-10] MEDS ORDERED: ATOR40TA PO (09:24)
[2017-02-10] MEDS ORDERED: VALS80TA PO (09:24)
--- NOTE | 2017-02-10 09:26 | Discharge Inst-Cardiology ---
Discharge Inst-Cardiac Discharge Medications New Medications: Aspirin (Aspirin) 81 Mg Tab.chew 81 MG PO DAILY, #90 TAB 3 Refills Atorvastatin Calcium (Lipitor) 40 Mg Tablet 40 MG PO HS for 90 Days, #90 TAB 3 Refills Clopidogrel Bisulfate (Clopidogrel) 75 Mg Tablet 75 MG PO DAILY for 90 Days, #90 TAB 3 Refills Metoprolol Succinate (Metoprolol Succinate) 50 Mg Tab.er.24h 50 MG PO DAILY for 90 Days, #90 TAB 3 Refills Valsartan (Diovan) 80 Mg Tablet 160 MG PO DAILY for 90 Days, #90 TAB 3 Refills Continued Medications: Duloxetine HCl (Duloxetine HCl) 60 Mg Capsule.dr 60 MG PO DAILY Ergocalciferol (Ergocalciferol) 50,000 Unit Capsule 91824 UNIT PO WEEKLY ON FRIDAY Insulin Glargine,Hum.rec.anlog (Lantus 10 Ml Vial) 100 Unit/1 Ml Vial 46 UNITS SC HS Levothyroxine Sodium (Levothyroxine 125 Mcg Tab) 125 Mcg Tablet 125 MCG PO DAILY Omeprazole (Omeprazole) 20 Mg Capsule.dr 20 MG PO DAILY [novalog] () 5 UNITS Discontinued Medications: Aspirin (Aspirin Ec 81 Mg) 81 Mg Tabec 81 MG PO DAILY Valsartan/Hydrochlorothiazide (Valsartan-Hctz 160-25 Mg Tab) 1 Each Tablet 1 TAB PO DAILY Patient Instructions Patient Instructions: F/u with Dr Arthur in 1-2 weeks May resume work without restriction on 02/17/17 No tobacco use Activity & Diet Discharge Diet: ADA Diet (1800 kCal ADA) [facility]UR [facility] Feb 10, 2017 09:26
--- NOTE | 2017-02-10 09:28 | Cardiology Discharge Summary ---
Diagnosis/Chief Complaint Date of Admission Feb 08, 2017 at 16:50 Date of Discharge Final/Discharge Diagnosis Ac STEMI, anterolateral, treated with successful primary angioplasty on 02/08/17 (see below) CAD. Cath of 02/08/17 showed total prox occlusion of the LAD that was successfully treated with stenting with Alpine Xience 2.5 x 15 mm stent; other cors had mild plaque; LVEDP was moderately elevated; LVEF was 45-50% Echo of 02/09/17 showed mid-septal hypokinesis, LVEF 55%, no significant valvular heart disease PVCs, isolated and coupled, asymptomatic. No VT Hypertension DM II Hyperlipidemia Obesity with BMI approx 28 Chief Complaint/HPI Chief Complaint/HPI CC: Chest pain HPI: 66 yo woman who presents with 2 hours of mid sternal cp radiating to shoulders and back and associated with diaphoresis and some shortness of breath , severe in intensity, unresponsive to s/l NTG, not associated with palp or syncope, never experienced before. Denies ankle swelling or fever or chills See note of 02/10/17 for condition at discharge Time spent in pt interview and exam and answering questions and preparing discharge and writing meds: 8:50 am to 9:29 am Discharge Summary Procedures Card cath and cor intervention on 02/08/17 Echo on 02/09/17 Hospital Course Pending Labs Laboratory Tests 02/10/17 03:56: White Blood Count 9.5, Red Blood Count 4.38, Hemoglobin 11.5, Hematocrit 35, Mean Corpuscular Volume 80, Mean Corpuscular Hemoglobin 26, Mean Corpuscular Hemoglobin Concent 33, Red Cell Distribution Width 14.1, Platelet Count 256, Mean Platelet Volume 11.5, Neutrophils (%) (Auto) 51, Lymphocytes (%) (Auto) 40 , Monocytes (%) (Auto) 7, Eosinophils (%) (Auto) 2, Basophils (%) (Auto) 0, Neutrophils # (Auto) 4.8, Lymphocytes # (Auto) 3.7, Monocytes # (Auto) 0.7, Eosinophils # (Auto) 0.2, Basophils # (Auto) 0.0, Sodium Level 143, Potassium Level 3.5, Chloride Level 107, Carbon Dioxide Level 27, Anion Gap 9, Blood Urea Nitrogen 13, Creatinine 0.95, Estimat Glomerular Filtration Rate 59, BUN/ Creatinine Ratio 14, Glucose Level 58, Calcium Level 9.0, Magnesium Level 2.0 02/10/17 05:31: Glucometer 79 Discussion & Recommendations Home Medications Reviewed patient Home Medication Reconciliation Form Discharge Home Medications: Reviewed and agree with Discharge Medication list on patient's Discharge Instruction sheet Clinical Quality Measures AMI/AHF: ASA po Prior to arrival: Yes DVT/VTE Risk/Contraindication: Risk Factor Score Per Nursin RFS Level Per Nursing on Admit: 3=High CROW ACKERMAN MD FACP FACC CCDS Feb 10, 2017 09:28
[2017-02-10] MEDS ORDERED: KCL 20 MEQ TAB (K-DUR) PO NR (09:30)
--- NOTE | 2017-02-10 11:23 | ECHOCARDIOGRAPHY REPORT ---
DATE OF SERVICE: 02/09/2017 CLINICAL DIAGNOSIS: Acute myocardial infarction. ORDERING PHYSICIAN: Dr. Arthur. MEASUREMENTS: LV diameter diastolic 4.2. IVS thickness diastolic 1. LVPW thickness diastolic 1.1. Left atrium 3.9. DESCRIPTION: Two dimension echocardiography shows basal and mid septal hypokinesis. Global left ventricular systolic function appears well preserved. Left ventricular ejection fraction is 55%. Aortic, mitral and tricuspid valve leaflets show good leaflet excursion. There is moderate mitral calcification. There is mild aortic valve sclerosis. There is no significant pericardial effusion. There is no Doppler evidence of any significant valvular stenosis. Mitral inflow is consistent with a grade I diastolic dysfunction left ventricle. There is no evidence of any significant intracardiac shunt. Inferior vena cava appears to be of normal size and does exhibit inspiratory collapse. CONCLUSION: 1. Well preserved global systolic function with ejection fraction of approximately 55%. 2. Basal and mid septal hypokinesis. 3. Moderate mitral annular calcification and mild aortic valve sclerosis without evidence of significant valvular stenosis. 4. Mild diastolic dysfunction of the left ventricle. 5. Pulmonary artery systolic pressure could not be reliably estimated on this study. Job ID: [id number] DocumentID: [id number] Dictated Date: 02/09/2017 12:27:34 Manager E Commerce Date: 02/09/2017 13:27:39 Dictated By: CROW ARTHUR MD, MA, FACP, FACC,
== END 2017-02-10 11:10 | disposition home or self-care (01) | DRG 247 ==
LOC: EDUNIT# 15:09 → ER 15:10 → CATH 15:37 → ICU 16:50
PROVIDERS: ADMIT Internal Medicine Cardiovascular Disease; ATTEND Internal Medicine Cardiovascular Disease
PROC: 027034Z Dilation of Coronary Artery, One Artery with Drug-eluting Intraluminal Device, Percutaneous Approach (ICD-10-PCS; principal; 2017-02-08)
PROC: 4A023N7 Measurement of Cardiac Sampling and Pressure, Left Heart, Percutaneous Approach (ICD-10-PCS; 2017-02-08)
PROC: B2111ZZ Fluoroscopy of Multiple Coronary Arteries using Low Osmolar Contrast (ICD-10-PCS; 2017-02-08)
PROC: B2151ZZ Fluoroscopy of Left Heart using Low Osmolar Contrast (ICD-10-PCS; 2017-02-08)
DX: I21.02 ST elevation (STEMI) myocardial infarction involving left anterior descending coronary artery (principal); I25.10 Atherosclerotic heart disease of native coronary artery without angina pectoris; I49.3 Ventricular premature depolarization; I10 Essential (primary) hypertension; E11.9 Type 2 diabetes mellitus without complications; Z79.4 Long term (current) use of insulin; E78.5 Hyperlipidemia, unspecified; E66.9 Obesity, unspecified; Z68.29 Body mass index [BMI] 29.0-29.9, adult
CPT/HCPCS: 36415; 71010; 80048; 80053; 80061; 82962; 83735; 83874; 84443; 84484; 85025; 85027; 85610; 85730; 93005; 93041; 93306; 93458; 96374; 96375

== ENCOUNTER → 2017-04-01 | Outpatient (CLI) | payer MEDICARE, OTHER ==
[~2017-04-01] MED LIST changes: +ASPI-999 PO; +ATOR40TA PO; +CLOP75TA28 PO; +METO-272 PO; +VALS80TA PO
--- NOTE | 2017-04-01 21:40 | Diagnostic Imaging Report ---
INDICATION: Cough. COMPARISON: 02/08/2017. FINDINGS: Two views of the chest are obtained. Heart size is mildly enlarged but unchanged. There is no central venous congestion. There is no pneumothorax, mediastinal widening or pleural fluid demonstrated. There is mild increase of the interstitial markings, similar to the prior study. The lungs are otherwise clear. No focal pneumonia is suspected. IMPRESSION: No acute abnormality is seen. No findings to suggest cardiac failure or pneumonia. Dictated by: Dictated on workstation # [id number]
== END ==
LOC: RAD 20:09
PROVIDERS: ATTEND Family Medicine
DX: R05 Cough (principal)
CPT/HCPCS: 71020

== ENCOUNTER 2017-05-21 15:45 | Emergency (ER) | payer MEDICARE, OTHER ==
[~2017-05-21] VITALS: Ht 170.2 cm; Wt 85.7 kg
[~2017-05-21 15:45] MED LIST changes: -METO-272 PO; +METO-370 PO
[2017-05-21 16:30] LABS: BASOPHILS % (AUTO) 1 % (0-10); EOSINOPHILS # (AUTO) 0.2 10^3/uL (0.0-0.3); EOSINOPHILS % (AUTO) 2 % (0-10); LYMPHOCYTES # (AUTO) 2.3 X 10^3 (1.0-4.0); LYMPHOCYTES % (AUTO) 30 % (12-44); MEAN CORPUSCULAR HEMOGLOBIN 23 PG (25-34); MEAN CORPUSCULAR HGB CONC 31 G/DL (32-36); MEAN CORPUSCULAR VOLUME 75 FL (80-99); MEAN PLATELET VOLUME 10.6 FL (7.4-10.4); MONOCYTES # (AUTO) 0.7 X 10^3 (0.0-1.0); MONOCYTES % (AUTO) 9 % (0-12); NEUTROPHILS # (AUTO) 4.4 X 10^3 (1.8-7.8); NEUTROPHILS % (AUTO) 58 % (42-75); PLATELET COUNT 295 10^3/uL (130-400); RED BLOOD COUNT 4.36 10^6/uL (4.35-5.85); RED CELL DISTRIBUTION WIDTH 14.4 % (10.0-14.5); WHITE BLOOD COUNT 7.6 10^3/uL (4.3-11.0)
--- NOTE | 2017-05-21 16:30 | ED General ---
General Chief Complaint: Lower Extremity Stated Complaint: LT LEG REDNESS/TENDERNESS Nursing Triage Note: PT CO OF L LOWER EXT HAVING REDNESS AND PAINFUL TO WALK OR TOUCH Nursing Sepsis Screen: No Definite Risk Source of Information: Patient Exam Limitations: No Limitations History of Present Illness Time Seen by Provider: 16:04 Initial Comments This 67-year-old woman presents to the emergency room with complaints of pain and erythema to the left lower extremity. In particular, she has a narrow strip of erythema along the anterior tibial ridge on the distal left leg. She has chronic erythema and edema of both feet and ankles which makes examination of secured. Pain started with a pinching sensation last week and has escalated. She is having significant pain with ambulation now. She had prior surgery with hardware placement in the left lower extremity because of fracture. Dr. García is her orthopedic surgeon and cannot see her until next week. His staff recommended that she come to the emergency room for the vibration. Patient has chronic numbness in her left foot from the prior injury. She denies any fever, chest pain, or shortness of breath. Allergies and Home Medications Allergies Coded Allergies: ceftriaxone (Verified Allergy, Intermediate, HIVES, 01/02/17) vancomycin (Verified Allergy, Intermediate, HIVES, 01/02/17) sulfamethoxazole (Verified Allergy, Mild, 01/02/17) trimethoprim (Verified Allergy, Mild, 01/02/17) Home Medications Aspirin 81 Mg Tab.chew, 81 MG PO DAILY, #90 Ref 3 Prescribed by: CROW ACKERMAN on 02/10/17923 Atorvastatin Calcium 40 Mg Tablet, 40 MG PO HS for 90 Days, #90 Ref 3 Prescribed by: CROW ACKERMAN on 02/10/17923 Clopidogrel Bisulfate 75 Mg Tablet, 75 MG PO DAILY for 90 Days, #90 Ref 3 Prescribed by: CROW ACKERMAN on 02/10/17923 Duloxetine HCl 60 Mg Capsule.dr, 60 MG PO DAILY, (Reported) Ergocalciferol 50,000 Unit Capsule, 50,000 UNIT PO WEEKLY ON FRIDAY, (Reported) Insulin Glargine,Hum.rec.anlog 100 Unit/1 Ml Vial, 46 UNITS SC HS, (Reported) Levothyroxine Sodium 125 Mcg Tablet, 125 MCG PO DAILY, (Reported) Metoprolol Succinate 50 Mg Tab.er.24h, 50 MG PO DAILY for 90 Days, #90 Ref 3 Prescribed by: CROW ACKERMAN on 02/10/17923 Omeprazole 20 Mg Capsule.dr, 20 MG PO DAILY, (Reported) Valsartan 80 Mg Tablet, 160 MG PO DAILY for 90 Days, #90 Ref 3 Prescribed by: CROW ACKERMAN on 02/10/17923 Constitutional: no symptoms reported EENTM: no symptoms reported Respiratory: no symptoms reported Cardiovascular: no symptoms reported Gastrointestinal: no symptoms reported Genitourinary: no symptoms reported : No Musculoskeletal: see HPI Skin: see HPI Hematologic/Lymphatic: No Symptoms Reported Past Arhqsxe-Vgompd-Akjnbo Hx Patient Social History Alcohol Use: Denies Use Recreational Drug Use: No Smoking Status: Former Smoker Former Smoker/When Quit: Dec 08, 1985 2nd Hand Smoke Exposure: No Recent Foreign Travel: No Contact w/Someone Who Travel: No Recent Infectious Disease Expo: No Recent Hopitalizations: No Immunizations Up To Date Tetanus Booster (TDap): Unknown Date of Pneumonia Vaccine: Jun 28, 2013 Date of Influenza Vaccine: Jul 29, 2013 Seasonal Allergies Seasonal Allergies: No Surgeries HX Surgeries: Yes (L4-L5, L ANKLE, LAP BAND) Surgeries: Abdominal, Coronary Stent, Hysterectomy, Orthopedic, Tonsillectomy Respiratory Hx Respiratory Disorders: No Cardiovascular Hx Cardiac Disorders: Yes Cardiac Disorders: Coronary Artery Disease, High Cholesterol, Hypertension Neurological Hx Neurological Disorders: No Reproductive System : No Hx Reproductive Disorders: No Sexually Transmitted Disease: No HIV/AIDS: No Female Reproductive Disorders: Denies Genitourinary Hx Genitourinary Disorders: No Gastrointestinal Hx Gastrointestinal Disorders: Yes (LAP BAND) Gastrointestinal Disorders: Gastroesophageal Reflux Musculoskeletal Hx Musculoskeletal Disorders: Yes (left leg Fx, left ankle fx, BACK SURGERY) Musculoskeletal Disorders: Fractures Endocrine Hx Endocrine Disorders: Yes Endocrine Disorders: Diabetes, Insulin dep, Hypothyroidsim HEENT HX ENT Disorders: Yes (Right eye retinopathy) Loss of Vision: Denies Hearing Impairment: Denies Cancer Hx Cancer: No Psychosocial Hx Psychiatric Problems: Yes (MILD) Behavioral Health Disorders: Depression Integumentary HX Skin/Integumentary Disorder: No Blood Transfusions Hx Blood Disorders: No Adverse Reaction to a Blood Tr: No Family Medical History Family Medial History: Congestive heart failure 03 MOTHER Family history: Arthritis 03 MOTHER Family history: Diabetes mellitus 03 MOTHER Family history: Hypertension 03 FATHER 03 MOTHER Stroke 03 FATHER ( 57YRS) 03 MOTHER (86YEARS) Physical Exam Vital Signs Vital Sign - Last 12Hours 05/21/17 15:55 Temp 96.7 Pulse 70 Resp 18 B/P (MAP) 179/93 Pulse Ox 100 Capillary Refill : Less Than 3 Seconds General Appearance: No Apparent Distress, WD/WN HEENT: PERRL/EOMI, Normal ENT Inspection Neck: Normal Inspection Respiratory: Lungs Clear, Normal Breath Sounds, No Accessory Muscle Use, No Respiratory Distress Cardiovascular: Regular Rate, Rhythm, No Edema, No Murmur, Normal Peripheral Pulses Extremity: No Calf Tenderness, Pedal Edema (pitting edema of the feet bilaterally, approximately equal), Other (Blade she erythema of both feet. Normal pedal pulses bilaterally. Tenderness focused over an erythematous spot on the distal anterior left lower leg. 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 Skin: Warm/Dry, Erythema Progress/Results/Core Measures Results/Orders Lab Results Laboratory Tests Test 05/21/17 16:24 Range/Units White Blood Count 7.6 4.3-11.0 10^3/uL Red Blood Count 4.36 4.35-5.85 10^6/uL Hemoglobin 10.1 L 11.5-16.0 G/DL Hematocrit 33 L 35-52 % Mean Corpuscular Volume 75 L 80-99 FL Mean Corpuscular Hemoglobin 23 L 25-34 PG Mean Corpuscular Hemoglobin Concent 31 L 32-36 G/DL Red Cell Distribution Width 14.4 10.0-14.5 % Platelet Count 295 130-400 10^3/uL Mean Platelet Volume 10.6 H 7.4-10.4 FL Neutrophils (%) (Auto) 58 42-75 % Lymphocytes (%) (Auto) 30 12-44 % Monocytes (%) (Auto) 9 0-12 % Eosinophils (%) (Auto) 2 0-10 % Basophils (%) (Auto) 1 0-10 % Neutrophils # (Auto) 4.4 1.8-7.8 X 10^3 Lymphocytes # (Auto) 2.3 1.0-4.0 X 10^3 Monocytes # (Auto) 0.7 0.0-1.0 X 10^3 Eosinophils # (Auto) 0.2 0.0-0.3 10^3/uL Basophils # (Auto) 0.0 0.0-0.1 10^3/uL D-Dimer 0.41 0.00-0.49 UG/ML Sodium Level 137 135-145 MMOL/L Potassium Level 3.7 3.6-5.0 MMOL/L Chloride Level 104 98-107 MMOL/L Carbon Dioxide Level 23 21-32 MMOL/L Anion Gap 10 5-14 MMOL/L Blood Urea Nitrogen 12 7-18 MG/DL Creatinine 0.92 0.60-1.30 MG/DL Estimat Glomerular Filtration Rate > 60 BUN/Creatinine Ratio 13 Glucose Level 213 H 70-105 MG/DL Calcium Level 9.1 8.5-10.1 MG/DL C-Reactive Protein High Sensitivity 0.32 0.00-0.50 MG/DL My Orders Orders - MAYRA CORADO MD Basic Metabolic Panel (05/21/17 16:13) Cbc With Automated Diff (05/21/17 16:13) Hs C Reactive Protein (05/21/17 16:13) Fibrin Degradation Products (05/21/17 16:13) Tibia/Fibula, Left, 2 Views (05/21/17 16:13) Foot, Left, 3 Views (05/21/17 16:13) Vital Signs/I&O Vital Sign - Last 12Hours 05/21/17 15:55 Temp 96.7 Pulse 70 Resp 18 B/P (MAP) 179/93 Pulse Ox 100 Blood Pressure Mean: 121 Diagnostic Imaging Diagonstic Imaging: Xray Plain Films/CT/US/NM/MRI: other (left foot) Comments X-ray of the left foot viewed by me and report reviewed. See report below: NAME: TOMÁS [facility] REC#: [id number] PT STATUS: REG ER : 1950 PHYSICIAN: MAYRA CORADO MD ADMIT DATE: 05/21/17/ER Draft Date of Exam:05/21/17 FOOT, LEFT, 3 VIEWS EXAMINATION: Three views of the left foot. INDICATION: Redness and tenderness of the left foot. FINDINGS: There is an old fracture deformity in the distal tibia partially visualized. There is suggestion of slight rotation at the ankle and subtalar joint perhaps secondary to the healed tibia with deformity and slight angulation. There is no acute fracture identified. No subluxation or dislocation is seen otherwise. There are degenerative changes in the interphalangeal joints. There is a deformity in the fifth metatarsal proximal aspect compatible with old fractures. IMPRESSION: Old fractures. Degenerative changes. Dictated on workstation # [id number] Dict: 05/21/17 1650 Trans: 05/21/17 1654 [id number] [id number] Interpreted by: NAY SPARKS MD Diagonstic Imaging: Xray Plain Films/CT/US/NM/MRI: leg Comments X-ray of the left tib-fib view by me and report reviewed. See report below: NAME: TOMÁS [facility]ADWICK [facility] REC#: [id number] PT STATUS: REG ER : 1950 PHYSICIAN: MAYRA CORADO MD ADMIT DATE: 05/21/17/ER Draft Date of Exam:05/21/17 TIBIA/FIBULA, LEFT, 2 VIEWS EXAMINATION: Two views of the left tibia and fibula. INDICATION: Pain and left leg redness and tenderness. FINDINGS: There is an old healed fracture with mild deformity in the distal tibia and fibula with internal fixation plate and screws into the mid to distal tibia seen. There is no acute fracture identified. The proximal and distal joints appear grossly unremarkable. IMPRESSION: Old fracture with deformity and internal fixation plate and screws in the mid to distal tibia. No acute fracture is seen. Dictated on workstation # [id number] Dict: 05/21/17 1648 Trans: 05/21/17 1653 [id number] Interpreted by: NAY SPARKS MD Departure Impression Impression: Primary Impression: Cellulitis of left leg Disposition: 01 HOME, SELF-CARE Condition: Stable Departure-Patient Inst. Decision time for Depature: 17:15 Referrals: JOSE ALEJANDRO MARIE DO (PCP/Family) Primary Care Physician Patient Instructions: Cellulitis (Skin Infection), Adult (DC) Add. Discharge Instructions: Complete your antibiotic as prescribed. Skin changes may spread for another day or so while antibiotics take effect. Please be aware that this antibiotic may cause sun sensitivity. Return to care if symptoms worsen significantly or if you develop new symptoms such as fever over 100. If your symptoms completely resolve, you may choose to cancel your appointment with Dr. García. All discharge instructions reviewed with patient and/or family. Voiced understanding. Scripts Doxycycline Hyclate (Doxycycline Hyclate) 100 Mg Tablet 100 MG PO BID, #14 TAB Prov: MAYRA CORADO MD 05/21/17 Copy Copies To 1: FLOR GARCÍA JOSHUA T MD May 21, 2017 16:30
[2017-05-21 16:47] LABS: ANION GAP 10 MMOL/L (5-14); BLOOD UREA NITROGEN 12 MG/DL (7-18); BUN/CREATININE RATIO 13; CALCIUM 9.1 MG/DL (8.5-10.1); CARBON DIOXIDE 23 MMOL/L (21-32); CHLORIDE 104 MMOL/L (98-107); CREATININE SERUM 0.92 MG/DL (0.60-1.30); GFR ESTIMATED > 60; GLUCOSE 213 MG/DL (70-105); POTASSIUM 3.7 MMOL/L (3.6-5.0); SODIUM 137 MMOL/L (135-145); hs C REACTIVE PROTEIN 0.32 MG/DL (0.00-0.50)
--- NOTE | 2017-05-21 16:53 | Diagnostic Imaging Report ---
EXAMINATION: Two views of the left tibia and fibula. INDICATION: Pain and left leg redness and tenderness. FINDINGS: There is an old healed fracture with mild deformity in the distal tibia and fibula with internal fixation plate and screws into the mid to distal tibia seen. There is no acute fracture identified. The proximal and distal joints appear grossly unremarkable. IMPRESSION: Old fracture with deformity and internal fixation plate and screws in the mid to distal tibia. No acute fracture is seen. Dictated by: Dictated on workstation # [id number]
--- NOTE | 2017-05-21 16:55 | Diagnostic Imaging Report ---
EXAMINATION: Three views of the left foot. INDICATION: Redness and tenderness of the left foot. FINDINGS: There is an old fracture deformity in the distal tibia partially visualized. There is suggestion of slight rotation at the ankle and subtalar joint perhaps secondary to the healed tibia with deformity and slight angulation. There is no acute fracture identified. No subluxation or dislocation is seen otherwise. There are degenerative changes in the interphalangeal joints. There is a deformity in the fifth metatarsal proximal aspect compatible with old fractures. IMPRESSION: Old fractures. Degenerative changes. Dictated by: Dictated on workstation # [id number]
[2017-05-21] MEDS ORDERED: DOXY100T2 PO (17:23)
[2017-05-21 17:25] VITALS: BP 179/93
== END 2017-05-21 17:25 | disposition home or self-care (01) ==
LOC: EDUNIT# 15:45 → ER 15:47
DX: L03.116 Cellulitis of left lower limb (principal); I25.10 Atherosclerotic heart disease of native coronary artery without angina pectoris; E78.00 Pure hypercholesterolemia, unspecified; I10 Essential (primary) hypertension; E11.9 Type 2 diabetes mellitus without complications; E03.9 Hypothyroidism, unspecified; F32.9 Major depressive disorder, single episode, unspecified; E11.319 Type 2 diabetes mellitus with unspecified diabetic retinopathy without macular edema; K21.9 Gastro-esophageal reflux disease without esophagitis; Z98.84 Bariatric surgery status; Z82.49 Family history of ischemic heart disease and other diseases of the circulatory system; Z79.82 Long term (current) use of aspirin; Z79.4 Long term (current) use of insulin; Z87.891 Personal history of nicotine dependence; Z95.5 Presence of coronary angioplasty implant and graft; Z90.710 Acquired absence of both cervix and uterus
CPT/HCPCS: 36415; 73590; 73630; 80048; 85025; 85379; 86141; 99283

== ENCOUNTER → 2017-10-15 | Outpatient (CLI) | payer MEDICARE, OTHER ==
[~2017-10-15] MED LIST changes: +DOXY100T2 PO
--- NOTE | 2017-10-15 14:56 | Diagnostic Imaging Report ---
EXAMINATION: PA and lateral views of the chest. INDICATION: Cough. COMPARISON: 04/01/2017. FINDINGS: The heart size is mildly enlarged. There is chronic appearing slight prominence of the interstitial markings. There is no focal infiltrate, effusion, or pneumothorax. The mediastinum and essence appear unremarkable. A gastric band appears to be in place in the upper left side of the abdomen. There is suggestion of an old compression fracture at the T12 level, similar to the previous study. IMPRESSION: No acute process. Dictated by: Dictated on workstation # [id number]
== END ==
LOC: RAD 13:55
PROVIDERS: ATTEND Family Medicine
DX: R05 Cough (principal)
CPT/HCPCS: 71020

== ENCOUNTER 2018-04-16 17:00 | Emergency (ER) | payer MEDICARE, OTHER ==
[~2018-04-16] VITALS: Ht 170.2 cm; Wt 76.2 kg
--- NOTE | 2018-04-16 17:36 | ED Trauma-Multisystem ---
General Chief Complaint: Trauma-Non Activation Stated Complaint: FALL/BILAT WRIST INJ Nursing Triage Note: ARRIVED VIA AMBULATORY TO ROOM 05. STATES AT 1030 SHE TRIPPED OVER A HOSE OUTSIDE AND FELL FACE FORWARD TO THE GROUND. PT HAS A RACOON EYE ON THE RIGHT WITH BROKEN GLASSES. DENIES NECK PAIN. PT STATES SHE TAKES PLAVIX AND ASA. PT ALSO COMPLAINS OF BILAT WRIST PAIN WITH THE LEFT WRIST BEING WORSE. Source of Information: Patient Exam Limitations: No Limitations History of Present Illness Date Seen by Provider: Apr 16, 2018 Time Seen by Provider: 17:30 Initial Comments Patient is a 67-year-old female who presents to the emergency room with complaints of a fall at 10:30 this morning. She reports tripping over her garden hose and falling face forward on the ground with outstretched arms. She has abrasions to the right side of her face and bilateral black eyes. She denies any head or neck pain but does report taking Plavix and aspirin. She does complain of bilateral wrist pain with a left wrist being the worst. She denies LOC. Occurred: Just Prior to Arrival Pain/Injury Location: None Associated Symptoms (Fall): No Confusion, No Dizziness, No Lightheadedness, No Nausea/Vomiting, No Shortness of Air, No Slurred Speech, No Trouble Walking, No Vision Changes Allergies and Home Medications Allergies Coded Allergies: ceftriaxone (Verified Allergy, Intermediate, HIVES, 01/02/17) vancomycin (Verified Allergy, Intermediate, HIVES, 01/02/17) sulfamethoxazole (Verified Allergy, Mild, 01/02/17) trimethoprim (Verified Allergy, Mild, 01/02/17) Home Medications Aspirin 81 Mg Tab.chew, 81 MG PO DAILY Prescribed by: CROW ACKERMAN on 02/10/17923 Atorvastatin Calcium 40 Mg Tablet, 40 MG PO HS Prescribed by: CROW ACKERMAN on 02/10/17923 Clopidogrel Bisulfate 75 Mg Tablet, 75 MG PO DAILY Prescribed by: CROW ACKERMAN on 02/10/17923 Doxycycline Hyclate 100 Mg Tablet, 100 MG PO BID Prescribed by: MAYRA CLARKE on 05/21/17 172 Duloxetine HCl 60 Mg Capsule.dr, 60 MG PO DAILY, (Reported) Ergocalciferol 50,000 Unit Capsule, 50,000 UNIT PO WEEKLY ON FRIDAY, (Reported) Insulin Glargine,Hum.rec.anlog 100 Unit/1 Ml Vial, 46 UNITS SC HS, (Reported) Levothyroxine Sodium 125 Mcg Tablet, 125 MCG PO DAILY, (Reported) Metoprolol Succinate 50 Mg Tab.er.24h, 50 MG PO DAILY Prescribed by: CROW ACKERMAN on 02/10/17923 Omeprazole 20 Mg Capsule.dr, 20 MG PO DAILY, (Reported) Valsartan 80 Mg Tablet, 160 MG PO DAILY Prescribed by: CROW ACKERMAN on 02/10/17923 Patient Home Medication List Home Medication List Reviewed: Yes Review of Systems Constitutional: see HPI; No chills, No diaphoresis, No dizziness, No weakness Eyes: See HPI; Denies Blindness, Denies Blurred Vision, Denies Photophobia; Glasses Ears: See HPI; Denies Dizziness, Denies Pain Nose: See HPI; No Bloody Discharge, No Clear Discharge, No Epistaxis Mouth: See HPI; No Bloody Discharge, No Clear Discharge, No Loose Teeth, No Pain Throat: See HPI; No Aphonia, No Difficulty With Fluids, No Discharge Respiratory: no symptoms reported; No dyspnea on exertion, No short of breath, No wheezing Cardiovascular: See HPI; Denies Chest Pain, Denies Edema, Denies Irregular Heart Rate, Denies Lightheadedness Gastrointestinal: see HPI; No abdominal pain, No diarrhea, No nausea, No vomiting Musculoskeletal: see HPI, other (bilateral wrist pain) Skin: see HPI, other (and abrasions to the right side of her face and bruising around her eyes.) All Other Systems Reviewed Negative Unless Noted: Yes Past Ygdddvd-Msrqsh-Rnmghf Hx Past Med/Social Hx: Reviewed Nursing Past Med/Soc Hx Patient Social History Alcohol Use: Denies Use Recreational Drug Use: No Smoking Status: Former Smoker Former Smoker, Quit: Dec 30, 1985 2nd Hand Smoke Exposure: No Recent Foreign Travel: No Contact w/Someone Who Travel: No Recent Infectious Disease Expo: No Recent Hopitalizations: No Immunizations Up To Date Tetanus Booster (TDap): Unknown Date of Pneumonia Vaccine: Jun 28, 2013 Date of Influenza Vaccine: Jul 29, 2013 Seasonal Allergies Seasonal Allergies: No Past Medical History Surgeries: Yes (L4-L5, L ANKLE, LAP BAND) Abdominal, Coronary Stent, Hysterectomy, Orthopedic, Tonsillectomy Respiratory: No Cardiac: Yes Coronary Artery Disease, High Cholesterol, Hypertension Neurological: No Reproductive Disorders: No Female Reproductive Disorders: Denies Sexually Transmitted Disease: No HIV/AIDS: No Gastrointestinal: Yes (LAP BAND) Gastroesophageal Reflux Musculoskeletal: Yes (left leg Fx, left ankle fx, BACK SURGERY) Fractures Endocrine: Yes Diabetes, Insulin dep, Hypothyroidsim Loss of Vision: Denies Hearing Impairment: Denies Cancer: No Psychosocial: Yes (MILD) Depression Integumentary: No Blood Disorders: No Adverse Reaction/Blood Tranf: No Family Medical History Reviewed Nursing Family Hx Congestive heart failure 03 MOTHER Family history: Arthritis 03 MOTHER Family history: Diabetes mellitus 03 MOTHER Family history: Hypertension 03 FATHER 03 MOTHER Stroke 03 FATHER ( 57YRS) 03 MOTHER (86YEARS) Physical Exam Vital Signs Vital Signs - First Documented 04/16/18 17:00 Temp 98.0 Pulse 65 Resp 18 B/P (MAP) 178/95 (122) Pulse Ox 99 Temperature (Fahrenheit): 98.0 General Appearance: No Apparent Distress, WD/WN Head: No Evidence of Injury Eyes: Bilateral Eye Normal Inspection, Bilateral Eye PERRL, Bilateral Eye EOMI , Bilateral Eye Other (she does have ecchymosis around both of her eyes the right being the worst.) Ears, Nose, Throat: Hearing Grossly Normal, No Evidence of ENT Injury, No Dental Injury Neck: Full Range of Motion, Normal Inspection, Non Tender, Supple Cardiovascular: Regular Rate, Rhythm, No Edema, No Gallop, No JVD, No Murmur, Normal Peripheral Pulses Respiratory: Chest Non Tender, Lungs Clear, Normal Breath Sounds, No Accessory Muscle Use, No Respiratory Distress Gastrointestinal: Normal Bowel Sounds, No Organomegaly, No Pulsatile Mass, Non Tender, Soft Back: Normal Inspection, No CVA Tenderness, No Vertebral Tenderness Extremity: Normal Capillary Refill, Normal Inspection, No Calf Tenderness, No Pedal Edema, Other Neurologic/Psychiatric: Alert, Oriented x3, Normal Mood/Affect Skin: Normal Color, Warm/Dry Lymphatic: No Adenopathy Pawel Coma Score Best Eye Response (Pawel): (4) Open Spontaneously Best Verbal Response (Pawel): (5) Oriented Best Motor Response ([place]): (6) Obeys Commands Pawel Total: 15 Progress/Results/Core Measures Results/Orders Lab Results Laboratory Tests Test 04/16/18 17:47 Range/Units Glucometer 85 70-110 MG/DL My Orders Orders - ABIGAIL CRAWFORD Ct Head/Cervical Spine Wo (04/16/18 17:18) Wrist,Bilat,3 Views Or More (04/16/18 17:18) Vital Signs/I&O 04/16/18 17:00 Temp 98.0 Pulse 65 Resp 18 B/P (MAP) 178/95 (122) Pulse Ox 99 Blood Pressure Mean: 122 Progress Progress Note : Time: 23:12 Progress Note Patient informed of negative acute imaging studies. She agreed with plans of discharge with return precautions. Diagnostic Imaging Diagonstic Imaging: Xray, CT Plain Films/CT/US/NM/MRI: hand, head Comments NAME: TOMÁS CHADWICK [facility] REC#: [id number] PT STATUS: REG ER : 1950 PHYSICIAN: ABIGAIL CRAWFORD ADMIT DATE: 04/16/18/ER Signed Date of Exam: 04/16/18 CT HEAD/CERVICAL SPINE WO PROCEDURE: CT head and CT cervical spine without contrast. TECHNIQUE: Multiple contiguous axial images were obtained through the brain and cervical spine without the use of intravenous contrast. Sagittal and coronal reformations through the cervical spine were then performed. INDICATION: Fall. Anticoagulated patient. Trauma to the head. COMPARISON: None. FINDINGS: CT head: The ventricles and cortical sulci are diffusely prominent, compatible with age-related volume loss. There are confluent areas of abnormal, low attenuation in the periventricular white matter. This is consistent with small vessel ischemic changes; age-indeterminate. There is no prior study available for comparison. There is no midline shift or mass-effect. No acute intra-axial hemorrhage is seen. There are no abnormal areas of increased or decreased density to suggest acute hemorrhage or edema. No extra-axial masses or collections are present. Small superficial soft tissue hematoma is noted within the left supraorbital region. The underlying bony calvarium is intact. The visualized paranasal sinuses are unremarkable. The mastoid air cells are clear. CT cervical spine: Evaluation of static alignment demonstrates straightening of normal lordotic curvature of the cervical spine. There is also slight grade 1 anterolisthesis at the C3-C4 and C4-C5 levels. There is no evidence of jumped facets. Vertebral body heights are maintained. There is no evidence of acute fracture. No bony fragments are seen within the spinal canal. There are sujr-yh-dznpbkjb multilevel degenerative changes consisting of intervertebral disc height loss with anterior and posterior disc bulges as well as multilevel facet arthropathy. Pre and paravertebral soft tissue structures are unremarkable. Note is made of calcified carotid atherosclerosis, bilaterally. Included portions of the lung apices are clear. IMPRESSION: 1. No acute intracranial abnormality. No CT evidence of mass, acute infarct or intracranial hemorrhage. 2. Small vessel ischemic changes in the periventricular and subcortical white matter; likely chronic. 3. No CT evidence of acute fracture or dislocation of the cervical spine. Dictated by: Dictated on workstation # [id number] Dict: 04/16/181739 Trans: 04/16/181755 Interpreted by: ANTOLIN GRIFFITHS MD Electronically signed by: ANTOLIN GRIFFITHS MD 04/16/181755 NAME: TOMÁS CHADWICK [facility] REC#: [id number] PHYSICIAN: ABIGAIL CRAWFORD CC: ABIGAIL CRAWFORD; BISI FREDERICK MD Page 2 of 2 RADIOLOGY REPORT [place], [place] CC: KAELYN CRAWFORD JEFFREY L MD Page 1 of 1 RADIOLOGY REPORT NAME: TOMÁS CHADWICK MED REC#: [id number] PT STATUS: REG ER : 1950 PHYSICIAN: ABIGAIL CRAWFORD ADMIT DATE: 04/16/18/ER Signed Date of Exam: 04/16/18 WRIST,BILAT,3 VIEWS OR MORE INDICATION: Fall. Wrist pain. TECHNIQUE: Three views of each wrist were acquired. FINDINGS: On the left, distal radius and ulna demonstrate no cortical disruption or acute fracture. The carpals appear normally aligned. There are advanced arthritic change of the first carpometacarpal joint and also at the triscaphe joint. There is widening of the scapholunate interval suggesting a prior scapholunate ligament tear. There is no evidence of an acute fracture. On the right, there additionally is widening of the scapholunate interval suggesting scapholunate ligament tear. There are less significant arthritic changes present at the triscaphe joint. There are moderate arthritic changes at the first carpometacarpal joint. There is no acute fracture. There is no dislocation. IMPRESSION: 1. Left greater than right osteoarthritic changes at the first carpometacarpal joint and at the triscaphe joint. 2. Widening of the scapholunate interval bilaterally suggests prior scapholunate ligament tears. 3. No acute fracture, malalignment or dislocation. Dictated by: Dictated on workstation # [id number] Dict: 04/16/181742 Trans: 04/16/181750 Interpreted by: BISI FREDERICK MD Electronically signed by: BISI FREDERICK MD 04/16/181750 Reviewed: Reviewed by Me Departure Impression Primary Impression: Fall Qualified Codes: W19.XXXA - Unspecified fall, initial encounter Additional Impressions: Contusion Qualified Codes: S60.219A - Contusion of unspecified wrist, initial encounter Abrasion Disposition: 01 HOME, SELF-CARE Condition: Stable/Unchanged Departure-Patient Inst. Decision time for Depature: 18:42 Referrals: JULIANE MCCALL MD, JACQUELINE S DO (PCP/Family) Primary Care Physician CLIFFORD IGLESIAS MICHAEL P MD Patient Instructions: Contusion (DC), Minor Head Injury (DC), Skin Abrasions ( DC) Add. Discharge Instructions: You may use ibuprofen and Tylenol as directed by the bottle for pain relief. Return back to the emergency room for increased pain or swelling in your wrists , her if you should develop a headache, nausea or vomiting, dizziness, lightheadedness, or any other concerns as needed. Follow-up with your doctor within 1 week for recheck and also follow up with an orthopedic surgeon. Call tomorrow morning for an appointment times. All discharge instructions reviewed with patient and/or family. Voiced understanding. ABIGAIL CRAWFORD Apr 16, 2018 17:36
--- NOTE | 2018-04-16 17:47 | Diagnostic Imaging Report ---
INDICATION: Fall. Wrist pain. TECHNIQUE: Three views of each wrist were acquired. FINDINGS: On the left, distal radius and ulna demonstrate no cortical disruption or acute fracture. The carpals appear normally aligned. There are advanced arthritic change of the first carpometacarpal joint and also at the triscaphe joint. There is widening of the scapholunate interval suggesting a prior scapholunate ligament tear. There is no evidence of an acute fracture. On the right, there additionally is widening of the scapholunate interval suggesting scapholunate ligament tear. There are less significant arthritic changes present at the triscaphe joint. There are moderate arthritic changes at the first carpometacarpal joint. There is no acute fracture. There is no dislocation. IMPRESSION: 1. Left greater than right osteoarthritic changes at the first carpometacarpal joint and at the triscaphe joint. 2. Widening of the scapholunate interval bilaterally suggests prior scapholunate ligament tears. 3. No acute fracture, malalignment or dislocation. Dictated by: Dictated on workstation # [id number]
--- NOTE | 2018-04-16 17:48 | Diagnostic Imaging Report ---
PROCEDURE: CT head and CT cervical spine without contrast. TECHNIQUE: Multiple contiguous axial images were obtained through the brain and cervical spine without the use of intravenous contrast. Sagittal and coronal reformations through the cervical spine were then performed. INDICATION: Fall. Anticoagulated patient. Trauma to the head. COMPARISON: None. FINDINGS: CT head: The ventricles and cortical sulci are diffusely prominent, compatible with age-related volume loss. There are confluent areas of abnormal, low attenuation in the periventricular white matter. This is consistent with small vessel ischemic changes; age-indeterminate. There is no prior study available for comparison. There is no midline shift or mass-effect. No acute intra-axial hemorrhage is seen. There are no abnormal areas of increased or decreased density to suggest acute hemorrhage or edema. No extra-axial masses or collections are present. Small superficial soft tissue hematoma is noted within the left supraorbital region. The underlying bony calvarium is intact. The visualized paranasal sinuses are unremarkable. The mastoid air cells are clear. CT cervical spine: Evaluation of static alignment demonstrates straightening of normal lordotic curvature of the cervical spine. There is also slight grade 1 anterolisthesis at the C3-C4 and C4-C5 levels. There is no evidence of jumped facets. Vertebral body heights are maintained. There is no evidence of acute fracture. No bony fragments are seen within the spinal canal. There are ieio-hx-ivfikrsi multilevel degenerative changes consisting of intervertebral disc height loss with anterior and posterior disc bulges as well as multilevel facet arthropathy. Pre and paravertebral soft tissue structures are unremarkable. Note is made of calcified carotid atherosclerosis, bilaterally. Included portions of the lung apices are clear. IMPRESSION: 1. No acute intracranial abnormality. No CT evidence of mass, acute infarct or intracranial hemorrhage. 2. Small vessel ischemic changes in the periventricular and subcortical white matter; likely chronic. 3. No CT evidence of acute fracture or dislocation of the cervical spine. Dictated by: Dictated on workstation # [id number]
[2018-04-16 19:04] VITALS: BP 183/108
== END 2018-04-16 19:04 | disposition home or self-care (01) ==
LOC: EDUNIT# 17:00 → ER 17:01
DX: S60.211A Contusion of right wrist, initial encounter (principal); S60.212A Contusion of left wrist, initial encounter; R40.2142 Coma scale, eyes open, spontaneous, at arrival to emergency department; R40.2252 Coma scale, best verbal response, oriented, at arrival to emergency department; R40.2362 Coma scale, best motor response, obeys commands, at arrival to emergency department; I25.10 Atherosclerotic heart disease of native coronary artery without angina pectoris; E78.00 Pure hypercholesterolemia, unspecified; I10 Essential (primary) hypertension; K21.9 Gastro-esophageal reflux disease without esophagitis; E11.9 Type 2 diabetes mellitus without complications; E03.9 Hypothyroidism, unspecified; F32.9 Major depressive disorder, single episode, unspecified; Z87.81 Personal history of (healed) traumatic fracture; Z87.891 Personal history of nicotine dependence; Z95.5 Presence of coronary angioplasty implant and graft; Z90.710 Acquired absence of both cervix and uterus; Z90.89 Acquired absence of other organs; Z98.84 Bariatric surgery status; Z79.82 Long term (current) use of aspirin; Z79.4 Long term (current) use of insulin; Z88.1 Allergy status to other antibiotic agents; Z79.02 Long term (current) use of antithrombotics/antiplatelets; Z88.2 Allergy status to sulfonamides; W01.198A Fall on same level from slipping, tripping and stumbling with subsequent striking against other object, initial encounter
CPT/HCPCS: 70450; 72125; 82962; 99282

== ENCOUNTER → 2019-02-16 | Outpatient (CLI) | payer MEDICARE, OTHER | LOC: WOUNDCARE 13:11 | PROVIDERS: ATTEND Surgery | DX: E11.621 Type 2 diabetes mellitus with foot ulcer (principal); E11.42 Type 2 diabetes mellitus with diabetic polyneuropathy; L97.513 Non-pressure chronic ulcer of other part of right foot with necrosis of muscle; M65.851 Other synovitis and tenosynovitis, right thigh; M20.41 Other hammer toe(s) (acquired), right foot | CPT/HCPCS: 11043; 87070; 87077; 87205 ==

== ENCOUNTER → 2019-02-26 | Outpatient (CLI) | payer MEDICARE, OTHER | LOC: WOUNDCARE 08:48 | PROVIDERS: ATTEND Nurse Practitioner | DX: E11.621 Type 2 diabetes mellitus with foot ulcer (principal); E11.42 Type 2 diabetes mellitus with diabetic polyneuropathy; L97.513 Non-pressure chronic ulcer of other part of right foot with necrosis of muscle; M65.861 Other synovitis and tenosynovitis, right lower leg; M20.41 Other hammer toe(s) (acquired), right foot | CPT/HCPCS: 11042; 82962 ==

== ENCOUNTER → 2019-03-05 | Outpatient (CLI) | payer MEDICARE, OTHER | LOC: WOUNDCARE 09:53 | PROVIDERS: ATTEND Surgery | DX: E11.621 Type 2 diabetes mellitus with foot ulcer (principal); E11.42 Type 2 diabetes mellitus with diabetic polyneuropathy; L97.513 Non-pressure chronic ulcer of other part of right foot with necrosis of muscle; L97.516 Non-pressure chronic ulcer of other part of right foot with bone involvement without evidence of necrosis; M65.861 Other synovitis and tenosynovitis, right lower leg; M20.41 Other hammer toe(s) (acquired), right foot | CPT/HCPCS: 11042 ==

== ENCOUNTER → 2019-03-05 | Outpatient (CLI) | payer MEDICARE, OTHER ==
--- NOTE | 2019-03-05 15:15 | Diagnostic Imaging Report ---
INDICATION: Nonpressure chronic ulcer of the foot. TECHNIQUE: Three views of the right foot. CORRELATION STUDY: None. FINDINGS: There is presence of soft tissue gas collection at the base of the third toe, the area marked. There is suggestion of very subtle lucency at the base of the proximal phalanx of the third toe, for which overall findings raise the concern for early changes reflecting osteomyelitis. Wade erosive or destructive changes, however, are not otherwise demonstrated. Slight irregularity at the interphalangeal joint of the little toe, for which previous injury and fracture is not excluded and suspect. There is a defect about the fifth metatarsal head appearing unchanged and likely of no significance. Remainder of the osseous structures are unremarkable. The joint space is otherwise maintained and unremarkable. IMPRESSION: Small soft tissue gas collection at the base of the third toe with small defect in the proximal phalanx. The overall findings do raise concern for potential early developing osteomyelitis. If further assessment desired, MRI would be recommended. Dictated by: Dictated on workstation # [id number]
== END ==
LOC: RAD 11:01
PROVIDERS: ATTEND Surgery
DX: L97.516 Non-pressure chronic ulcer of other part of right foot with bone involvement without evidence of necrosis (principal)
CPT/HCPCS: 73630

== ENCOUNTER → 2019-03-12 | Outpatient (CLI) | payer MEDICARE, OTHER | LOC: WOUNDCARE 09:54 | PROVIDERS: ATTEND Surgery | DX: E11.621 Type 2 diabetes mellitus with foot ulcer (principal); E11.42 Type 2 diabetes mellitus with diabetic polyneuropathy; L97.512 Non-pressure chronic ulcer of other part of right foot with fat layer exposed; M65.861 Other synovitis and tenosynovitis, right lower leg; M20.41 Other hammer toe(s) (acquired), right foot | CPT/HCPCS: 11042; 82962; 87070; 87077; 87205 ==

== ENCOUNTER → 2019-03-16 | Outpatient (CLI) | payer MEDICARE, OTHER ==
[~2019-03-16] VITALS: Ht 170.2 cm; Wt 76.7 kg
[~2019-03-16] MED LIST changes: +CATHETER FLUSH 10 ML SYR IV PRN; +REGADENOSON 0.4 MG/5 ML SYR (LEXISCAN) IV ONE
--- NOTE | 2019-03-16 21:45 | STRESS TEST ---
DATE OF SERVICE: 03/16/2019 RESTING AND POST REGADENOSON TECHNETIUM-99M TETROFOSMIN SPECT CT IMAGING ORDERING PHYSICIAN: Leanne Bailey APRN PRIMARY PHYSICIAN: Dr. Kaba. CLINICAL DIAGNOSIS: Coronary artery disease. Baseline images were carried out after injection of 10.81 mCi of technetium-99m Tetrofosmin. This was followed by 0.4 mg regadenoson and 28.9 mCi of technetium-99m Tetrofosmin for stress imaging. The electrocardiogram showed sinus rhythm at baseline. It did not change significantly with the regadenoson infusion. The patient tolerated the procedure well. Review of images at rest and following stress indicate a small fixed apical perfusion defect. Gated images show well preserved global left ventricular systolic function. There does not appear to be distinct regional wall motion abnormality. Left ventricular ejection fraction is calculated to be 61%. Left ventricular end diastolic volume is 65 mL. TID is absent (0.99). CONCLUSIONS: 1. The study is suggestive of a small apical infarction without ischemia. 2. No significant regional wall motion abnormality seen. 3. Left ventricular ejection fraction is calculated to be 61%. Job ID: [id number] DocumentID: [id number] Dictated Date: 03/16/2019 19:32:56 Test Cell Technician Date: 03/16/2019 21:44:56 Dictated By: CROW ACKERMAN MD, MA, FACP, FACC, MTDD
== END ==
LOC: CARD 10:55
PROVIDERS: ATTEND Nurse Practitioner Family
DX: I25.10 Atherosclerotic heart disease of native coronary artery without angina pectoris (principal); I77.9 Disorder of arteries and arterioles, unspecified; I10 Essential (primary) hypertension; E78.5 Hyperlipidemia, unspecified
CPT/HCPCS: 78452; 93017

== ENCOUNTER → 2019-03-19 | Outpatient (CLI) | payer MEDICARE, OTHER ==
[~2019-03-19] MED LIST changes: -CATHETER FLUSH 10 ML SYR IV PRN; -REGADENOSON 0.4 MG/5 ML SYR (LEXISCAN) IV ONE
== END ==
LOC: WOUNDCARE 09:57
PROVIDERS: ATTEND Surgery
DX: E11.621 Type 2 diabetes mellitus with foot ulcer (principal); L97.516 Non-pressure chronic ulcer of other part of right foot with bone involvement without evidence of necrosis; E11.42 Type 2 diabetes mellitus with diabetic polyneuropathy; M65.861 Other synovitis and tenosynovitis, right lower leg; M20.41 Other hammer toe(s) (acquired), right foot
CPT/HCPCS: 11042

== ENCOUNTER → 2019-03-26 | Outpatient (CLI) | payer MEDICARE, OTHER | LOC: WOUNDCARE 07:58 | PROVIDERS: ATTEND Surgery | DX: E11.621 Type 2 diabetes mellitus with foot ulcer (principal); E11.42 Type 2 diabetes mellitus with diabetic polyneuropathy; M65.861 Other synovitis and tenosynovitis, right lower leg; M20.41 Other hammer toe(s) (acquired), right foot; L97.512 Non-pressure chronic ulcer of other part of right foot with fat layer exposed | CPT/HCPCS: 15275 ==

== ENCOUNTER → 2019-04-02 | Outpatient (CLI) | payer MEDICARE, OTHER | LOC: WOUNDCARE 08:07 | PROVIDERS: ATTEND Surgery | DX: E11.621 Type 2 diabetes mellitus with foot ulcer (principal); E11.42 Type 2 diabetes mellitus with diabetic polyneuropathy; M65.861 Other synovitis and tenosynovitis, right lower leg; M20.41 Other hammer toe(s) (acquired), right foot; L97.512 Non-pressure chronic ulcer of other part of right foot with fat layer exposed | CPT/HCPCS: 15275; 87070; 87077; 87181; 87205 ==

== ENCOUNTER → 2019-04-14 | Outpatient (CLI) | payer MEDICARE, OTHER | LOC: WOUNDCARE 08:18 | PROVIDERS: ATTEND Surgery | DX: E11.621 Type 2 diabetes mellitus with foot ulcer (principal); L97.512 Non-pressure chronic ulcer of other part of right foot with fat layer exposed; E11.42 Type 2 diabetes mellitus with diabetic polyneuropathy; M65.861 Other synovitis and tenosynovitis, right lower leg; M20.41 Other hammer toe(s) (acquired), right foot | CPT/HCPCS: 11042 ==

== ENCOUNTER → 2019-04-16 | Outpatient (CLI) | payer MEDICARE, OTHER | LOC: WOUNDCARE 08:04 | PROVIDERS: ATTEND Surgery | DX: E11.621 Type 2 diabetes mellitus with foot ulcer (principal); L97.512 Non-pressure chronic ulcer of other part of right foot with fat layer exposed; E11.42 Type 2 diabetes mellitus with diabetic polyneuropathy; M65.861 Other synovitis and tenosynovitis, right lower leg; M20.41 Other hammer toe(s) (acquired), right foot | CPT/HCPCS: 15275 ==

== ENCOUNTER → 2019-04-21 | Outpatient (CLI) | payer MEDICARE, OTHER | LOC: WOUNDCARE 10:54 | PROVIDERS: ATTEND Surgery | DX: E11.621 Type 2 diabetes mellitus with foot ulcer (principal); L97.512 Non-pressure chronic ulcer of other part of right foot with fat layer exposed; E11.52 Type 2 diabetes mellitus with diabetic peripheral angiopathy with gangrene; I96 Gangrene, not elsewhere classified; E11.42 Type 2 diabetes mellitus with diabetic polyneuropathy | CPT/HCPCS: 11042 ==

== ENCOUNTER → 2019-04-28 | Outpatient (CLI) | payer MEDICARE, OTHER | LOC: WOUNDCARE 08:11 | PROVIDERS: ATTEND Surgery | DX: E11.621 Type 2 diabetes mellitus with foot ulcer (principal); E11.52 Type 2 diabetes mellitus with diabetic peripheral angiopathy with gangrene; E11.42 Type 2 diabetes mellitus with diabetic polyneuropathy; I96 Gangrene, not elsewhere classified; M65.861 Other synovitis and tenosynovitis, right lower leg; M20.41 Other hammer toe(s) (acquired), right foot; L97.512 Non-pressure chronic ulcer of other part of right foot with fat layer exposed | CPT/HCPCS: 11042 ==

== ENCOUNTER → 2019-05-05 | Outpatient (CLI) | payer MEDICARE, OTHER | LOC: WOUNDCARE 08:06 | PROVIDERS: ATTEND Surgery | DX: E11.621 Type 2 diabetes mellitus with foot ulcer (principal); E11.42 Type 2 diabetes mellitus with diabetic polyneuropathy; E11.52 Type 2 diabetes mellitus with diabetic peripheral angiopathy with gangrene; I96 Gangrene, not elsewhere classified; L97.512 Non-pressure chronic ulcer of other part of right foot with fat layer exposed; M85.861 Other specified disorders of bone density and structure, right lower leg; M20.41 Other hammer toe(s) (acquired), right foot | CPT/HCPCS: 11042 ==

== ENCOUNTER → 2021-07-06 | Outpatient (CLI) | payer MEDICARE, OTHER ==
[~2021-07-06] MED LIST changes: -METO-370 PO; +METO50TA7 PO
== END ==
LOC: CARD 10:21
PROVIDERS: ATTEND Nurse Practitioner Family
DX: I51.7 Cardiomegaly (principal); I34.8 Other nonrheumatic mitral valve disorders
CPT/HCPCS: 93306

== ENCOUNTER → 2021-07-13 | Outpatient (CLI) | payer MEDICARE, OTHER ==
[~2021-07-13] VITALS: Ht 170 cm; Wt 71.0 kg
[~2021-07-13] MED LIST changes: +CATHETER FLUSH 10 ML SYR IV PRN; +REGADENOSON 0.4 MG/5 ML SYR (LEXISCAN) IV ONE
[2021-07-13 08:58] VITALS: BP 154/60
--- NOTE | 2021-07-17 15:45 | STRESS TEST ---
DATE OF SERVICE: 07/13/2021 RESTING AND POST REGADENOSON TECHNETIUM-99M TETROFOSMIN SPECT CT IMAGING Baseline images were carried out after injection of 10.78 mCi of technetium-99m Tetrofosmin. This was followed by 0.4 mg regadenoson and 29.9 mCi of technetium-99m Tetrofosmin for stress imaging. The electrocardiogram showed sinus rhythm at baseline. There were premature atrial contractions. The electrocardiogram did not change significantly with the regadenoson infusion. Review of images at rest and following stress indicates an apical perfusion defect, which is relatively small and predominantly fixed. Gated images show normal global left ventricular systolic function with normal regional wall motion. Left ventricular ejection fraction is calculated to be 56%. Left ventricular end-diastolic volume is 56 mL. TID is absent (1.13). CONCLUSIONS: 1. This study is indicative of a small anteroapical infarction with a small amount of alex-infarct ischemia. 2. Localized anteroapical hypokinesis. 3. Normal global left ventricular systolic function with a calculated ejection fraction of 56%. Job ID: [id number] DocumentID: [id number] Dictated Date: 07/17/2021 13:31:09 Ruffling Hemmer Automatic Date: 07/17/2021 15:45:31 Dictated By: CROW ACKERMAN MD, MA, FACP, FACC,
== END ==
LOC: CARD 07:45
PROVIDERS: ATTEND Nurse Practitioner Family
DX: I25.10 Atherosclerotic heart disease of native coronary artery without angina pectoris (principal)
CPT/HCPCS: 78452; 93017; A9502

== ENCOUNTER → 2022-01-18 | Outpatient (CLI) | payer MEDICARE, OTHER ==
[~2022-01-18] MED LIST changes: -CATHETER FLUSH 10 ML SYR IV PRN; -REGADENOSON 0.4 MG/5 ML SYR (LEXISCAN) IV ONE
--- NOTE | 2022-01-18 13:19 | Diagnostic Imaging Report ---
Indication: Routine screening. Comparison is made with prior mammogram 06/12/2011. 2-D and 3-D bilateral screening mammography was performed with CAD. Both breasts are heterogeneously dense, limiting the sensitivity of mammography. There are benign parenchymal and vascular calcifications bilaterally. No mass or malignant-appearing microcalcifications are seen. Axillae are unremarkable. IMPRESSION: BI-RADS Category 2 No mammographic features suspicious for malignancy are identified. ACR BI-RADS Category 2: Benign findings. Result letter will be mailed to the patient. Note: At least 10% of breast cancer is not imaged by mammography. Dictated by: Dictated on workstation # [id number]
== END ==
LOC: RAD 07:51
PROVIDERS: ATTEND Family Medicine
DX: Z12.31 Encounter for screening mammogram for malignant neoplasm of breast (principal)
CPT/HCPCS: 77063; 77067

== ENCOUNTER → 2022-08-12 | Outpatient (CLI) | payer MEDICARE, OTHER ==
--- NOTE | 2022-08-12 17:03 | Diagnostic Imaging Report ---
INDICATION: Back pain. FINDINGS: 3 views. There is mild rotary scoliosis. There is a mild anterior wedge deformity of L1. There is diffuse sclerotic appearance of the vertebral body. There is also sclerosis along the superior endplate of L2. There is marked degenerative disc change. L3-L5 vertebral bodies appear normal. There is degenerative disc disease with narrowing at L4-L5 and L5-S1 with mild sclerotic and hypertrophic change. There is a lap band demonstrated. IMPRESSION: 1. Sclerotic changes of the L1 vertebral body with some loss of body height. Advanced arthritic changes of L1-L2. These findings are of concern for underlying pathological process such as metastatic disease or discitis. Would consider CT scan of the spine or MRI with and without IV gadolinium. Dictated by: Dictated on workstation # [id number]
== END ==
LOC: RAD 10:56
PROVIDERS: ATTEND Family Medicine
DX: M47.816 Spondylosis without myelopathy or radiculopathy, lumbar region (principal)
CPT/HCPCS: 72100

== ENCOUNTER → 2022-08-16 | Outpatient (CLI) | payer MEDICARE, OTHER ==
--- NOTE | 2022-08-16 10:48 | Diagnostic Imaging Report ---
PROCEDURE: CT lumbar spine without contrast. TECHNIQUE: Multiple contiguous axial images were obtained through the lumbar spine without the use of intravenous contrast. Sagittal and coronal reformations were then performed. Auto Exposure Controls were utilized during the CT exam to meet ALARA standards for radiation dose reduction. INDICATION: Low back pain, left greater than right. COMPARISON: Radiographs from 08/12/2022 FINDINGS: There is mild left convex curvature of the lumbar spine centered at L3. There is minimal retrolisthesis at L1-L2 and grade 1 anterolisthesis at L5-S1. Bone mineral density appears diffusely low. There is sclerosis at the endplates of T12-L1 and L1-L2 with associated vacuum disc phenomenon and complete disc height loss and subcortical cystlike changes. This is due to advanced degenerative change. There is also severe degenerative change at L2-L3 and moderate degenerative changes at L4-L5 and L5-S1. There is multilevel facet arthropathy, more pronounced at L4-L5 and L5-S1. Vertebral body heights appear preserved with no acute fracture seen. No bony fragments or hyperdense fluid collections are seen in the spinal canal. The spinal canal is suboptimally evaluated by CT, but there does appear to be spinal canal stenosis at multiple levels, severe at L4-L5 and L5-S1. There is multilevel foraminal stenosis bilaterally. Soft tissues about the lumbar spine demonstrate no acute abnormality. A lap band is noted at the stomach. There is moderate stool in the colon. IMPRESSION: 1. Advanced degenerative changes throughout the lumbar spine. 2. Multilevel spinal canal stenosis, appears most severe at L4-L5 and L5-S1. 3. Multilevel marked bilateral foraminal stenosis. Dictated by: Dictated on workstation # [id number]
== END ==
LOC: RAD 08:45
PROVIDERS: ATTEND Family Medicine
DX: M47.816 Spondylosis without myelopathy or radiculopathy, lumbar region (principal); M48.061 Spinal stenosis, lumbar region without neurogenic claudication; M48.07 Spinal stenosis, lumbosacral region
CPT/HCPCS: 72131

== ENCOUNTER 2022-09-13 11:49 | Emergency (ER) | payer MEDICARE, OTHER ==
[~2022-09-13] VITALS: Ht 170.2 cm; Wt 65.0 kg
[2022-09-13] MEDS ORDERED: KETOROLAC 30 MG/ML VIAL IVP ONE (14:00)
[2022-09-13] MEDS ORDERED: ORPHENADRINE 60 MG/2 ML (NORFLEX) AMP (ED ONLY) IV ONE (14:15)
[2022-09-13 14:24] LABS: BASOPHILS # (AUTO) 0.1 10^3/uL (0.0-0.1); BASOPHILS % (AUTO) 1 % (0-10); EOSINOPHILS # (AUTO) 0.2 10^3/uL (0.0-0.3); EOSINOPHILS % (AUTO) 3 % (0-10); HEMATOCRIT 36 % (35-52); HEMOGLOBIN 12.4 g/dL (11.5-16.0); LYMPHOCYTES # (AUTO) 1.6 X 10^3 (1.0-4.0); LYMPHOCYTES % (AUTO) 24 % (12-44); MEAN CORPUSCULAR HEMOGLOBIN 30 pg (25-34); MEAN CORPUSCULAR HGB CONC 34 g/dL (32-36); MEAN CORPUSCULAR VOLUME 87 fL (80-99); MEAN PLATELET VOLUME 10.8 fL (9.0-12.2); MONOCYTES # (AUTO) 0.6 X 10^3 (0.0-1.0); MONOCYTES % (AUTO) 9 % (0-12); NEUTROPHILS # (AUTO) 4.2 X 10^3 (1.8-7.8); NEUTROPHILS % (AUTO) 64 % (42-75); PLATELET COUNT 247 10^3/uL (130-400); WHITE BLOOD COUNT 6.6 10^3/uL (4.3-11.0)
[2022-09-13 14:43] LABS: POTASSIUM 4.1 MMOL/L (3.6-5.0)
[2022-09-13 14:44] LABS: CALCIUM 9.9 MG/DL (8.5-10.1)
[2022-09-13 14:47] LABS: ERYTHROCYTE SEDIMENTATION RATE 7 MM/HR (0-30)
[2022-09-13 14:49] LABS: CREATININE SERUM 0.8 MG/DL (0.60-1.30)
[2022-09-13 14:51] LABS: MAGNESIUM 1.5 MG/DL (1.6-2.4)
[2022-09-13] MEDS ORDERED: MAGNESIUM 1 GM/100 ML IVPB 100 ML IV ONE (15:15)
[2022-09-13] MEDS ORDERED: oxyCODONE/APAP 5/325MG (PERCOCET 5) TABLET PO ONE (16:15)
[2022-09-13] MEDS ORDERED: ACHD5005 PO ×2 (17:08→17:11)
[2022-09-13] MEDS ORDERED: PRD20T PO ×2 (17:08→17:11)
[2022-09-13] MEDS ORDERED: CYCL10TA25 PO ×2 (17:08→17:11)
[2022-09-13] MEDS ORDERED: MAGN400T7 PO ×2 (17:08→17:11)
--- NOTE | 2022-09-13 17:09 | ED Back Pain ---
General Chief Complaint: Back Problems Stated Complaint: LOWER BACK PAIN Nursing Triage Note: PT TO TRIAGE VIA WC W C/O LOWER BACK PAIN THAT RADIATES DOWN BOTH LEGS AND MUSCLE SPASMS. PT A&OX4, REPORTS SHE HAS SEEN PCP MULTIPLE TIMES FOR THIS EPISODE OF BACK PAIN. Source of Information: Patient, Old Records Exam Limitations: No Limitations History of Present Illness Date Seen by Provider: Sep 13, 2022 Allergies and Home Medications Allergies Coded Allergies: ceftriaxone (Verified Allergy, Intermediate, HIVES, 01/02/17) vancomycin (Verified Allergy, Intermediate, HIVES, 01/02/17) sulfamethoxazole (Verified Allergy, Mild, 01/02/17) trimethoprim (Verified Allergy, Mild, 01/02/17) Patient Home Medication List Aspirin (Aspirin) 81 Mg Tab.chew, 81 MG PO DAILY Prescribed by: CROW ACKERMAN on 02/10/17923 Atorvastatin Calcium (Lipitor) 40 Mg Tablet, 40 MG PO HS Prescribed by: CROW ACKERMAN on 02/10/17923 Clopidogrel Bisulfate (Clopidogrel) 75 Mg Tablet, 75 MG PO DAILY Prescribed by: CROW ACKERMAN on 02/10/17923 Cyclobenzaprine HCl (Cyclobenzaprine HCl) 10 Mg Tablet, 10 MG PO Q8H PRN for SPASMS Prescribed by: MAYRA CLARKE on 09/13/22 171 Doxycycline Hyclate (Doxycycline Hyclate) 100 Mg Tablet, 100 MG PO BID Prescribed by: MAYRA CLARKE on 05/21/17 172 Duloxetine HCl (Duloxetine HCl) 60 Mg Capsule.dr, 60 MG PO DAILY, (Reported) Entered as Reported by: SHAHAB BOWEN on 06/07/14 1328 Ergocalciferol (Ergocalciferol) 50,000 Unit Capsule, 50,000 UNIT PO WEEKLY ON FRIDAY, (Reported) Entered as Reported by: SHAHAB BOWEN on 11/19/13 1109 Hydrocodone/Acetaminophen (Hydrocodone-Acetamin 5-325 mg) 5 Mg-325 Mg Tablet, 1- 2 TAB PO Q4H PRN for PAIN-BREAKTHROUGH Prescribed by: MAYRA CLARKE on 09/13/22 171 Insulin Glargine,Hum.rec.anlog (Lantus 10 Ml Vial) 100 Unit/1 Ml Vial, 46 UNITS SC HS, (Reported) Entered as Reported by: SHAHAB BOWEN on 06/07/14 1328 Levothyroxine Sodium (Levothyroxine 125 Mcg Tab) 125 Mcg Tablet, 125 MCG PO DAILY, (Reported) Entered as Reported by: SHAHAB BOWEN on 06/07/14 1328 Magnesium Oxide (Magnesium Oxide) 400 Mg Tablet, 400 MG PO BID Prescribed by: MAYRA CLARKE on 09/13/22 171 Metoprolol Succinate (Metoprolol Succinate) 50 Mg Tab.er.24h, 50 MG PO DAILY Prescribed by: CROW ACKERMAN on 02/10/17 0924 Omeprazole (Omeprazole) 20 Mg Capsule.dr, 20 MG PO DAILY, (Reported) Entered as Reported by: SHAHAB BOWEN on 11/19/13 110 Prednisone (Prednisone) 20 Mg Tab, 40 MG PO DAILY Prescribed by: MAYRA CLARKE on 09/13/22 171 Valsartan (Diovan) 80 Mg Tablet, 160 MG PO DAILY Prescribed by: CROW ACKERMAN on 02/10/17 09 Past Fapvrzr-Fttccd-Hdzrht Hx Patient Social History Tobacco Use?: No Use of E-Cig and/or Vaping dev: No Substance use?: No Alcohol Use?: No Immunizations Up To Date Tetanus Booster (TDap): Unknown Influenza Vaccine Up-to-Date: No; Not Current First/Initial COVID19 Vaccinat: 2020 Second COVID19 Vaccination Juliocesar: 2020 Third COVID19 Vaccination Date: 2021 COVID19 Vaccine Jet Inspector: OmiciaKevin Seasonal Allergies Seasonal Allergies: No Past Medical History Surgeries: Yes (L4-L5, L ANKLE, LAP BAND) Abdominal, Coronary Stent, Hysterectomy, Orthopedic, Tonsillectomy Respiratory: No Cardiac: Yes Coronary Artery Disease, High Cholesterol, Hypertension Neurological: No Reproductive Disorders: No Female Reproductive Disorders: Denies Sexually Transmitted Disease: No HIV/AIDS: No Gastrointestinal: Yes (LAP BAND) Gastroesophageal Reflux Musculoskeletal: Yes (left leg Fx, left ankle fx, BACK SURGERY) Fractures Endocrine: Yes Diabetes, Insulin dep, Hypothyroidsim Loss of Vision: Denies Hearing Impairment: Denies Cancer: No Psychosocial: Yes (MILD) Depression Integumentary: No Blood Disorders: No Adverse Reaction/Blood Tranf: No Family Medical History Congestive heart failure 03 MOTHER Family history: Arthritis 03 MOTHER Family history: Diabetes mellitus 03 MOTHER Family history: Hypertension 03 FATHER 03 MOTHER Stroke 03 FATHER ( 57YRS) 03 MOTHER (86YEARS) Physical Exam Vital Signs Vital Signs - First Documented 09/13/22 12:11 Temp 36.6 Pulse 68 Resp 20 B/P (MAP) 111/69 (83) Pulse Ox 100 O2 Delivery Room Air Capillary Refill : Less Than 3 Seconds Height, Weight, BMI Height: 5'7.00" Weight: 169lbs. 0.0oz. 76.782128vd; 22.00 BMI Method:Stated Progress/Results/Core Measures Results/Orders Lab Results Laboratory Tests Test 09/13/22 14:15 Range/Units White Blood Count 6.6 4.3-11.0 10^3/uL Red Blood Count 4.19 3.80-5.11 10^6/uL Hemoglobin 12.4 11.5-16.0 g/dL Hematocrit 36 35-52 % Mean Corpuscular Volume 87 80-99 fL Mean Corpuscular Hemoglobin 30 25-34 pg Mean Corpuscular Hemoglobin Concent 34 32-36 g/dL Red Cell Distribution Width 13.8 10.0-14.5 % Platelet Count 247 130-400 10^3/uL Mean Platelet Volume 10.8 9.0-12.2 fL Immature Granulocyte % (Auto) 0 % Neutrophils (%) (Auto) 64 42-75 % Lymphocytes (%) (Auto) 24 12-44 % Monocytes (%) (Auto) 9 0-12 % Eosinophils (%) (Auto) 3 0-10 % Basophils (%) (Auto) 1 0-10 % Neutrophils # (Auto) 4.2 1.8-7.8 X 10^3 Lymphocytes # (Auto) 1.6 1.0-4.0 X 10^3 Monocytes # (Auto) 0.6 0.0-1.0 X 10^3 Eosinophils # (Auto) 0.2 0.0-0.3 10^3/uL Basophils # (Auto) 0.1 0.0-0.1 10^3/uL Immature Granulocyte # (Auto) 0.0 0.0-0.1 10^3/uL Erythrocyte Sedimentation Rate 7 0-30 MM/HR Sodium Level 139 135-145 MMOL/L Potassium Level 4.1 3.6-5.0 MMOL/L Chloride Level 106 98-107 MMOL/L Carbon Dioxide Level 23 21-32 MMOL/L Anion Gap 10 5-14 MMOL/L Blood Urea Nitrogen 18 7-18 MG/DL Creatinine 0.80 0.60-1.30 MG/DL Estimat Glomerular Filtration Rate 79 BUN/Creatinine Ratio 23 Glucose Level 100 70-105 MG/DL Calcium Level 9.9 8.5-10.1 MG/DL Magnesium Level 1.5 L 1.6-2.4 MG/DL C-Reactive Protein High Sensitivity 0.12 0.00-0.50 MG/DL My Orders Orders - MAYRA CORADO MD Basic Metabolic Panel (09/13/22 13:49) Cbc With Automated Diff (09/13/22 13:49) Hs C Reactive Protein (09/13/22 13:49) Magnesium (09/13/22 13:49) Erythrocyte Sedimentation Rate (09/13/22 13:49) Ed Iv/Invasive Line Start (09/13/22 13:49) Ketorolac Injection (Toradol Injection) (09/13/22 14:00) Orphenadrine Inj (Ed Only) (Norflex Inje (09/13/22 14:15) Magnesium 1 Gm/100 Ml Ivpb (Magnesium Villagran (09/13/22 15:15) Oxycodone/Apap 5/325mg Tablet (Percocet (09/13/22 16:15) Medications Given in ED Current Medications Medications Dose Ordered Sig/Scott Route Start Time Stop Time Status Last Admin Dose Admin Ketorolac Tromethamine 30 mg ONCE ONCE IVP 09/13/22 14:00 09/13/22 14:01 DC 09/13/22 14:16 30 MG Magnesium Sulfate/ Dextrose 100 ml @ 100 mls/hr ONCE ONCE IV 09/13/22 15:15 09/13/22 16:14 DC 09/13/22 15:13 100 MLS/HR Orphenadrine Citrate 60 mg ONCE ONCE IV 09/13/22 14:15 09/13/22 14:16 DC 09/13/22 14:21 60 MG Oxycodone/ Acetaminophen 1 tab ONCE ONCE PO 09/13/22 16:15 09/13/22 16:16 DC 09/13/22 16:15 1 TAB Vital Signs/I&O 09/13/22 12:11 Temp 36.6 Pulse 68 Resp 20 B/P (MAP) 111/69 (83) Pulse Ox 100 O2 Delivery Room Air Blood Pressure Mean: 83 Departure Impression Primary Impression: Lumbar radiculopathy Additional Impressions: Low back pain Qualified Codes: M54.42 - Lumbago with sciatica, left side; M54.41 - Lumbago with sciatica, right side Hypomagnesemia Spinal stenosis Qualified Codes: M48.062 - Spinal stenosis, lumbar region with neurogenic claudication Disposition: HOME, SELF-CARE Condition: Improved Departure-Patient Inst. Decision time for Depature: 17:04 Referrals: JOSE ALEJANDRO MARIE DO (PCP/Family) Primary Care Physician Patient Instructions: Low Back Pain ED, Radiculopathy, Spinal Stenosis, Spinal Stenosis Stretching Exercises Add. Discharge Instructions: You may use Aleve (naproxen) as previously directed for primary pain control. Add hydrocodone as prescribed for additional pain relief. Please be advised hydrocodone may cause drowsiness. Use with caution. Do not operate machinery or drive while on hydrocodone. Hydrocodone may also cause constipation, so you may wish to take a stool softener while on it to prevent constipation. Drink plenty of clear liquids to stay well-hydrated. Your magnesium was low today which may be contributing to muscle spasms. Take the magnesium supplement as prescribed. For muscle spasms and muscle tension, you may use the cyclobenzaprine muscle relaxer as prescribed. Use this cautiously, especially in combination with hydrocodone as it also may cause drowsiness. Take prednisone early in the day to avoid sleep disturbance. Take prednisone with food or milk to avoid upset stomach. Follow-up with your primary care provider soon as possible. Due to your spinal stenosis and significant symptoms, you should seek further evaluation with MRI and possibly a credit risk specialist. Symptoms of true leg weakness (paralysis), groin or genital numbness, or bowel or bladder continence problems may represent a true neurologic emergency with your spine. Please return to the emergency room promptly if you develop the symptoms, if possible, it would be best to present to a facility with MRI capability should these emergencies occur. Please return to the emergency room or contact your doctor if you have any other concerning complications with your condition. All discharge instructions reviewed with patient and/or family. Voiced understanding. Scripts Hydrocodone/Acetaminophen (Hydrocodone-Acetamin 5-325 mg) 5 Mg-325 Mg Tablet 1-2 TAB PO Q4H PRN for PAIN-BREAKTHROUGH, #20 TAB Prov: MAYRA CORADO MD 09/13/22 Prednisone (Prednisone) 20 Mg Tab 40 MG PO DAILY, #8 TAB 0 Refills Prov: MAYRA OCRADO MD 09/13/22 Magnesium Oxide (Magnesium Oxide) 400 Mg Tablet 400 MG PO BID, #10 TAB Prov: MAYRA CORADO MD 09/13/22 Cyclobenzaprine HCl (Cyclobenzaprine HCl) 10 Mg Tablet 10 MG PO Q8H PRN for SPASMS, #15 TAB 0 Refills Prov: MAYRA CORADO MD 09/13/22 MAYRA CORADO MD Sep 13, 2022 17:08
[2022-09-13 17:21] VITALS: BP 123/69
== END 2022-09-13 17:21 | disposition home or self-care (01) ==
LOC: EDUNIT# 11:49 → ER 11:51
DX: M54.16 Radiculopathy, lumbar region (principal); E83.42 Hypomagnesemia; M48.061 Spinal stenosis, lumbar region without neurogenic claudication; E11.9 Type 2 diabetes mellitus without complications; Z79.4 Long term (current) use of insulin
CPT/HCPCS: 36415; 80048; 83735; 85025; 85652; 86141; 99281

== ENCOUNTER → 2022-10-17 | Outpatient (CLI) | payer MEDICARE, OTHER ==
[~2022-10-17] MED LIST changes: +CYCL10TA25 PO; +MAGN400T7 PO; +PRD20T PO
--- NOTE | 2022-10-17 12:50 | Diagnostic Imaging Report ---
PROCEDURE: MRI lumbar spine. TECHNIQUE: Multiplanar, multisequence MRI of the lumbar spine was performed without contrast. INDICATION: Worsening severity of back pain, previous surgery in 1985. COMPARISON: No prior lumbar MR for comparison. It is correlated with radiographs and CTs of the lumbar performed July 2022. FINDINGS: Patient was complaining of progressive pain and severity of nausea throughout image acquisition. This results in a substantial degree of motion artifact and most severely degrading the limited T1 sagittal images. At that point, the patient was unable to continue further imaging; we could not perform axial acquisitions or satisfactorily complete the T1-weighted series. There is marrow edema at the T12-L1 and L1-L2 levels where there is severe spondylosis, and at earlier imaging, extensive degenerative sclerotic changes with degenerative vacuum gas phenomena were present. Posterior to the T12 vertebral body superiorly, there is a presumed disc extrusion with disc fragment measuring 1.4 cm cephalocaudal x 8 mm AP. This disc fragment as well as more diffuse degenerative endplate and disc changes result in left T12 lateral recess impingement and at least moderate stenosis of the left greater than right T12-L1 and T11-T12 neural foramina. There are severe degenerative changes throughout the lumbar spine with an at least moderate degree of canal stenosis at the L2-L3 level where there is moderate left and severe right neural foraminal stenosis. At L3-L4, there is [id number] biforaminal stenosis at L4-L5. There is moderate biforaminal and mild canal stenosis. At the L5-S1 level, there is moderate right and severe left foraminal narrowing with severe canal stenosis. No paravertebral mass, hemorrhage, or fluid collection. IMPRESSION: 1. Limited by motion and incompletion owing to progressive patient nausea and pain. Severe degenerative changes with substantial degrees of multilevel spinal canal and foraminal stenoses present as well as a presumed herniated disc fragment posterior to T12 resulting in canal, foraminal, and recess stenoses. 2. No fluid collection. There is likely degenerative marrow edema across the thoracolumbar junction in keeping with prior findings at CT lumbar. Dictated by: Dictated on workstation # [id number]
== END ==
LOC: RAD 07:18
PROVIDERS: ATTEND Family Medicine
DX: M51.16 Intervertebral disc disorders with radiculopathy, lumbar region (principal); M48.061 Spinal stenosis, lumbar region without neurogenic claudication
CPT/HCPCS: 72148

== ENCOUNTER → 2023-06-12 | Outpatient (CLI) | payer MEDICARE, OTHER ==
[2023-06-12 12:56] LABS: BASOPHILS # (AUTO) 0.1 10^3/uL (0.0-0.1); BASOPHILS % (AUTO) 1 % (0-10); EOSINOPHILS # (AUTO) 0.3 10^3/uL (0.0-0.3); EOSINOPHILS % (AUTO) 4 % (0-10); HEMATOCRIT 35 % (35-52); HEMOGLOBIN 11.4 g/dL (11.5-16.0); LYMPHOCYTES % (AUTO) 25 % (12-44); MEAN CORPUSCULAR HEMOGLOBIN 29 pg (25-34); MEAN CORPUSCULAR HGB CONC 33 g/dL (32-36); MEAN CORPUSCULAR VOLUME 88 fL (80-99); MONOCYTES # (AUTO) 0.6 10^3/uL (0.0-1.0); MONOCYTES % (AUTO) 8 % (0-12); NEUTROPHILS % (AUTO) 62 % (42-75); PLATELET COUNT 227 10^3/uL (130-400)
[2023-06-12 13:10] LABS: POTASSIUM 4.1 MMOL/L (3.6-5.0)
[2023-06-12 13:11] LABS: CALCIUM 9.2 MG/DL (8.5-10.1)
[2023-06-12 13:12] LABS: TOTAL PROTEIN 6.5 GM/DL (6.4-8.2)
[2023-06-12 13:14] LABS: BILIRUBIN,TOTAL 1.3 MG/DL (0.1-1.0)
[2023-06-12 13:16] LABS: CREATININE SERUM 0.84 MG/DL (0.60-1.30)
[2023-06-12 13:41] LABS: ERYTHROCYTE SEDIMENTATION RATE 6 MM/HR (0-30)
== END ==
LOC: WOUNDCARE 12:03
PROVIDERS: ATTEND Family Medicine
DX: L97.222 Non-pressure chronic ulcer of left calf with fat layer exposed (principal); E11.622 Type 2 diabetes mellitus with other skin ulcer; I89.0 Lymphedema, not elsewhere classified; Y82.8 Other medical devices associated with adverse incidents
CPT/HCPCS: 80053; 85025; 85652; 86141; 87070; 87205; A6197; G0463; 36415; 99213

== ENCOUNTER → 2023-06-13 | Outpatient (CLI) | payer MEDICARE, OTHER ==
[~2023-06-13] MED LIST changes: +GADOTERATE 0.5 MMOL/ML (CLARISCAN) 20 ML VIAL IV ONE
--- NOTE | 2023-06-13 20:27 | Diagnostic Imaging Report ---
PROCEDURE: MRI left lower extremity with and without contrast. TECHNIQUE: Multiplanar, multisequence pre and post contrast-enhanced MRI of the left lower extremity was accomplished. INDICATION: Ulceration extends across the mid gibson region. Pain with prior fracture. Prior surgery to the ankle. Diabetes. EXAMINATION: Left lower extremity MRI with and without contrast 06/13/2023 FINDINGS: There is a focus of abnormal signal alteration at the tibial plafond. Areas of susceptibility artifact noted and this is presumably due to the history of postoperative change. Correlative radiographs would be useful for better characterization. More proximally deformity of the mid tibia is noted consistent with an old healed fracture. No acute fractures or dislocations appreciated. There is diffuse T2 hyperintensity throughout the subcutaneous soft tissues of the visualized extremity likely edema. Areas of cellulitis not excluded. No drainable fluid collection/abscess appreciated. No soft tissue masses visualized. Visualized tendons intact. IMPRESSION: 1. Diffuse T2 hyperintensity within the subcutaneous soft tissues presumably due to edema or cellulitis not excluded. 2. No evidence for mass or abscess. 3. Findings at the tibial plafond and likely postoperative. Correlative radiographs would be useful. Dictated by: Dictated on workstation # [id number]
== END ==
LOC: RAD 13:24
PROVIDERS: ATTEND Family Medicine
DX: L97.222 Non-pressure chronic ulcer of left calf with fat layer exposed (principal); E11.622 Type 2 diabetes mellitus with other skin ulcer; I89.0 Lymphedema, not elsewhere classified; Y82.8 Other medical devices associated with adverse incidents
CPT/HCPCS: 73720

== ENCOUNTER → 2023-06-20 | Outpatient (CLI) | payer MEDICARE, OTHER ==
[~2023-06-20] MED LIST changes: -GADOTERATE 0.5 MMOL/ML (CLARISCAN) 20 ML VIAL IV ONE
== END ==
LOC: WOUNDCARE 07:59
PROVIDERS: ATTEND Family Medicine
DX: L97.222 Non-pressure chronic ulcer of left calf with fat layer exposed (principal); E11.622 Type 2 diabetes mellitus with other skin ulcer; I89.0 Lymphedema, not elsewhere classified; Y82.8 Other medical devices associated with adverse incidents; E11.52 Type 2 diabetes mellitus with diabetic peripheral angiopathy with gangrene; I96 Gangrene, not elsewhere classified
CPT/HCPCS: 11042; G0463

== ENCOUNTER → 2023-06-24 | Outpatient (CLI) | payer MEDICARE, OTHER | LOC: WOUNDCARE 08:00 | PROVIDERS: ATTEND Family Medicine | DX: I96 Gangrene, not elsewhere classified (principal); L97.222 Non-pressure chronic ulcer of left calf with fat layer exposed; E11.40 Type 2 diabetes mellitus with diabetic neuropathy, unspecified; I21.9 Acute myocardial infarction, unspecified; I10 Essential (primary) hypertension; H26.9 Unspecified cataract; D64.9 Anemia, unspecified | CPT/HCPCS: 29581; G0463 ==

== ENCOUNTER → 2023-06-27 | Outpatient (CLI) | payer MEDICARE, OTHER | LOC: WOUNDCARE 08:09 | PROVIDERS: ATTEND Family Medicine | DX: L97.222 Non-pressure chronic ulcer of left calf with fat layer exposed (principal); E11.622 Type 2 diabetes mellitus with other skin ulcer; I89.0 Lymphedema, not elsewhere classified; Y82.8 Other medical devices associated with adverse incidents; E11.52 Type 2 diabetes mellitus with diabetic peripheral angiopathy with gangrene; I96 Gangrene, not elsewhere classified | CPT/HCPCS: 11042; G0463 ==

== ENCOUNTER → 2023-07-04 | Outpatient (CLI) | payer MEDICARE, OTHER | LOC: WOUNDCARE 08:04 | PROVIDERS: ATTEND Family Medicine | DX: L97.222 Non-pressure chronic ulcer of left calf with fat layer exposed (principal); E11.622 Type 2 diabetes mellitus with other skin ulcer; I89.0 Lymphedema, not elsewhere classified; Y82.8 Other medical devices associated with adverse incidents; E11.52 Type 2 diabetes mellitus with diabetic peripheral angiopathy with gangrene; I96 Gangrene, not elsewhere classified | CPT/HCPCS: 11042; G0463 ==

== ENCOUNTER → 2023-07-11 | Outpatient (CLI) | payer MEDICARE, OTHER | LOC: WOUNDCARE 08:11 | PROVIDERS: ATTEND Family Medicine | DX: I96 Gangrene, not elsewhere classified (principal); L97.222 Non-pressure chronic ulcer of left calf with fat layer exposed; E11.622 Type 2 diabetes mellitus with other skin ulcer; I89.0 Lymphedema, not elsewhere classified; Y82.8 Other medical devices associated with adverse incidents | CPT/HCPCS: 11042; G0463 ==

== ENCOUNTER → 2023-07-25 | Outpatient (CLI) | payer MEDICARE, OTHER | LOC: WOUNDCARE 08:07 | PROVIDERS: ATTEND Family Medicine | DX: L97.222 Non-pressure chronic ulcer of left calf with fat layer exposed (principal); E11.622 Type 2 diabetes mellitus with other skin ulcer; I89.0 Lymphedema, not elsewhere classified; Y82.8 Other medical devices associated with adverse incidents; E11.52 Type 2 diabetes mellitus with diabetic peripheral angiopathy with gangrene; I96 Gangrene, not elsewhere classified | CPT/HCPCS: 15271; G0463 ==

== ENCOUNTER → 2023-08-01 | Outpatient (CLI) | payer MEDICARE, OTHER | LOC: WOUNDCARE 08:07 | PROVIDERS: ATTEND Family Medicine | DX: L97.222 Non-pressure chronic ulcer of left calf with fat layer exposed (principal); E11.621 Type 2 diabetes mellitus with foot ulcer; I89.0 Lymphedema, not elsewhere classified; Y82.8 Other medical devices associated with adverse incidents | CPT/HCPCS: 15275; G0463 ==

== ENCOUNTER → 2023-08-08 | Outpatient (CLI) | payer MEDICARE, OTHER | LOC: WOUNDCARE 08:09 | PROVIDERS: ATTEND Family Medicine | DX: L97.222 Non-pressure chronic ulcer of left calf with fat layer exposed (principal); E11.621 Type 2 diabetes mellitus with foot ulcer; I89.0 Lymphedema, not elsewhere classified; Y82.8 Other medical devices associated with adverse incidents | CPT/HCPCS: 15271; G0463 ==

== ENCOUNTER → 2023-08-15 | Outpatient (CLI) | payer MEDICARE, OTHER | LOC: WOUNDCARE 08:11 | PROVIDERS: ATTEND Family Medicine | DX: E11.622 Type 2 diabetes mellitus with other skin ulcer (principal); L97.222 Non-pressure chronic ulcer of left calf with fat layer exposed; I89.0 Lymphedema, not elsewhere classified; Y82.8 Other medical devices associated with adverse incidents | CPT/HCPCS: 29581; G0463 ==

== ENCOUNTER → 2023-08-22 | Outpatient (CLI) | payer MEDICARE, OTHER | LOC: WOUNDCARE 08:12 | PROVIDERS: ATTEND Family Medicine | DX: E11.622 Type 2 diabetes mellitus with other skin ulcer (principal); L97.222 Non-pressure chronic ulcer of left calf with fat layer exposed; I89.0 Lymphedema, not elsewhere classified | CPT/HCPCS: 99212 ==

== ENCOUNTER → 2023-08-28 | Outpatient (CLI) | payer MEDICARE, OTHER | LOC: WOUNDCARE 12:03 | PROVIDERS: ATTEND Family Medicine | DX: I96 Gangrene, not elsewhere classified (principal); E11.622 Type 2 diabetes mellitus with other skin ulcer; L97.222 Non-pressure chronic ulcer of left calf with fat layer exposed; I89.0 Lymphedema, not elsewhere classified | CPT/HCPCS: 11042; A6021; A6253; G0463 ==

== ENCOUNTER → 2023-09-04 | Outpatient (CLI) | payer MEDICARE, OTHER | LOC: WOUNDCARE 08:13 | PROVIDERS: ATTEND Family Medicine | DX: E11.622 Type 2 diabetes mellitus with other skin ulcer (principal); L97.222 Non-pressure chronic ulcer of left calf with fat layer exposed; I89.0 Lymphedema, not elsewhere classified; E11.52 Type 2 diabetes mellitus with diabetic peripheral angiopathy with gangrene | CPT/HCPCS: 11042; A6021; G0463 ==

== ENCOUNTER → 2023-09-10 | Outpatient (CLI) | payer MEDICARE, OTHER | LOC: WOUNDCARE 08:24 | PROVIDERS: ATTEND Family Medicine | DX: L97.222 Non-pressure chronic ulcer of left calf with fat layer exposed (principal); E11.622 Type 2 diabetes mellitus with other skin ulcer; I89.0 Lymphedema, not elsewhere classified | CPT/HCPCS: 29581; A6021; G0463 ==

== ENCOUNTER → 2023-09-18 | Outpatient (CLI) | payer MEDICARE, OTHER | LOC: WOUNDCARE 08:10 | PROVIDERS: ATTEND Family Medicine | DX: L97.922 Non-pressure chronic ulcer of unspecified part of left lower leg with fat layer exposed (principal); E11.622 Type 2 diabetes mellitus with other skin ulcer; I89.0 Lymphedema, not elsewhere classified | CPT/HCPCS: 99212 ==